=== PATIENT | female | born 1980 | race African-American/Black ===

== ENCOUNTER 2024-06-19 20:57 | Emergency (ER) | payer MEDICAID, SELFPAY ==
[2024-06-19 21:10] VITALS: BP 123/74; PULSE 82; RESP 18; TEMP 37.3; O2SAT 97; BMI 43.2
--- NOTE | 2024-06-19 23:33 | ED.GENADULT ---
HPI - General Adult General Chief complaint: Epistaxis Stated complaint: nose bleed Time Seen by Provider: 06/19/24 23:27 Source: patient, RN notes reviewed and old records reviewed Mode of arrival: ambulatory Limitations: no limitations History of Present Illness ED Provider: Brenda LEVINE narrative: 43-year-old female presents for evaluation of a nosebleed. Patient reports that she had a sudden notes have a nosebleed around 830 last night. She states that there was no trauma. The nosebleed with some of the right nostril only lasted 10-15 minute before resolving denies any bleeding from anywhere else including vaginal or rectal bleeding she was not on any anticoagulation denies any other complaints or concerns at this time Related Data Allergies Allergy/AdvReac Type Severity Reaction Status Date / Time No Known Allergies Allergy Verified 06/19/24 21:12 Review of Systems Constitutional: Constitutional: Denies body ache(s), Denies chills, Denies fever(s) and Denies headache(s) Eyes: Eyes: Denies exophthalmos and Denies floaters ENT: Denies headache(s) and Reports epistaxis Cardiovascular: Cardiovascular: Denies chest pain and Denies dyspnea Respiratory: Respiratory: Denies cough and Denies dyspnea Gastrointestinal: Gastrointestinal: Denies abdominal pain, Denies melena, Denies hematochezia and Denies vomiting Genitourinary: Genitourinary: Denies vaginal discharge Neurologic: Denies headache(s) PMFSH Social History Social History Advance Directives: No Advance Directives Information Provided: Yes Physical Exam ED Vital Signs: Vital Signs - 24 hr 06/19/24 21:10 Temperature 99.2 F Pulse Rate 82 Respiratory Rate 18 Blood Pressure 123/74 Pulse Oximetry 97 Oxygen Delivery Method Room Air BMI result Body Mass Index 43.2 Const General: healthy appearing, comfortable, no acute distress, alert and awake Nutritional Appearance: well nourished Orientation/consciousness: patient oriented x3 HENMT Other: minimal dried blood within the right nostril, no active epistaxis Head: Yes normocephalic and Yes atraumatic General nose exam: No nasal discharge present, no epistaxis, no foreign body in nares and no nasal polyps Face and sinus: Yes sinuses nontender Eyes Eyelids: Yes eyelids normal Conjunctivae: conjunctivae normal Sclerae: sclerae normal Corneas: corneas normal Pupils: Equal, round and reactive pupils present EOM: EOMs intact bilaterally Neck Neck: Yes full ROM Resp Effort & Inspection: normal respiratory effort, able to speak in complete sentences and not labored Skin General skin exam: elasticity normal Neuro General: patient oriented x3 Cranial nerves: Yes Equal, round and reactive pupils present and Yes Bilaterally intact EOM present Cognition (Neuro): normal cognition Extrem Other: Moving all extremities well without any obvious deformities Medical Decision Making Medical Decision Making MDM Narrative: 42-year-old female presents for evaluation of a nosebleed. Symptoms started at hour prior to arrival it lasted 10-15 minutes before resolving on its own. There was no active bleeding. The patient's vital signs are stable. She is not anticoagulated. She was educated on nosebleeds and treatment and he will be discharged. Differential Diagnosis Differential Diagnoses: The differential diagnosis associated with the presentation includes Epistaxis Nosebleed Allergies Coagulopathy Discharge Plan Discharge Clinical Impression: Epistaxis Patient Disposition: Home, Self-Care Instructions: Nosebleed (ED) Additional Instructions: if you are nosebleed returns, hold direct pressure over your nose for 10-15 minutes. You may also apply ice packs of the outside of the nose. If you continue to have nosebleeds, you may want to get a humidifier to put next to your bed at night follow-up with your primary doctor, return for new or worsening symptoms Print Language: Nigerian Creole
[2024-06-19 23:52] VITALS: BP 123/74; PULSE 82; RESP 18; TEMP 37.3; O2SAT 97
== END 2024-06-20 | disposition home or self-care (01) ==
PROVIDERS: Emergency Provider Internal Medicine
DX: R04.0 Epistaxis (principal)
CPT/HCPCS: 99282

== ENCOUNTER 2024-07-07 11:16 | Outpatient (REF) | payer MEDICAID, SELFPAY ==
--- NOTE | ~2024-07-07 | XR_ITS ---
EXAMINATION: XR HAND, LEFT CLINICAL INFORMATION: L hand and wrist pain, L trigger finger, hand numbness COMPARISON: None available. TECHNIQUE: PA, lateral, and oblique views of the left hand. FINDINGS: The bones and soft tissues are normal. No fracture. Alignment is anatomic. Joint spaces are maintained. No erosions or soft tissue calcifications. XR/XR hand LT min 3V IMPRESSION: Normal left hand. Electronically signed by: Leonard Florence MD 07/07/2024 12:26 PM EDT
--- NOTE | ~2024-07-07 | XR_ITS ---
EXAMINATION: XR WRIST, LEFT CLINICAL INFORMATION: L hand and wrist pain, L trigger finger, hand numbness COMPARISON: None available. TECHNIQUE: PA, lateral, oblique, and scaphoid views of the left wrist. FINDINGS: The bones and soft tissues are normal. No fracture. Alignment is anatomic with normal joint spaces. No erosions or abnormal soft tissue calcifications. XR/XR wrist LT min 3V IMPRESSION: Normal left wrist. Electronically signed by: Leonard Florence MD 07/07/2024 12:25 PM EDT
--- OUTSIDE RECORDS SUMMARY | 2024-07-07 12:45 | XMS_ITS | Encounter Summary ---
Author Organization [employer] Address [address] [facility] [address] [place] [address] Care Team Providers Care Tariff Inspector Name Role Phone Leora Peña DO Primary Care Provider [phone] Reason for Referral * Consultation (Urgent) - Authorized Specialty Diagnoses / Procedures Referred By Contac t Referred To Contact Family Medicine Diagnoses Skin lesion Leora Peña DO [address], [place] Phone: tel: fax: Referral ID Status Reason Start Date Expiration Date Visits Requested Visits Authorized [id number] Authorized Specialty Services Required 07/07/2024 07/07/2025 1 1 * Consultation (Routine) - Pending Review Specialty Diagnoses / Procedures Referred By Contac t Referred To Contact Orthopaedic Surgery Diagnoses Numbness of left hand Left wrist pain Trigger middle finger of left hand Leora Peña DO [address], [place] Phone: tel: fax: Referral ID Status Reason Start Date Expiration Date Visits Requested Visits Authorized [id number] Pending Review Specialty Services Required 07/07/2024 07/07/2025 1 1 * Neurology (Routine) - Authorized Specialty Diagnoses / Procedures Referred By Contac t Referred To Contact Diagnoses Numbness of left hand Left wrist pain Procedures Nerve conduction test Leora Peña DO [address] [place] [address] Phone: tel: fax: [address] Phone: tel: fax: Referral ID Status Reason Start Date Expiration Date V isits Requested Visits Authorized [id number] Authorized 07/07/2024 07/07/2025 1 1 * Neurology (Routine) - Authorized Specialty Diagnoses / Procedures Referred By Irais daly Referred To Contact Diagnoses Numbness of left hand Left wrist pain Procedures EMG Leora Peña DO [address] [place] [address] Phone: tel: fax: [address] Phone: tel: fax: Referral ID Status Reason Start Date Expiration Date V isits Requested Visits Authorized [id number] Authorized 07/07/2024 07/07/2025 1 1 Reason for Visit * Reason Comments hand numbness Encounter Details Date Type Department Care Team (Late st Contact Info) Description 07/07/2024 9:40 AM EDT Office Visit [facility] [address] [place] [id number] Numbness of left hand (Primary Dx); Left wrist pain; Trigger middle finger of left hand; Skin lesion; Anxiety Social History Tobacco Use Types Packs/Day Years Used Date Smoking Tobacco: Never Tobacco Cessation:Counseling Given: Not Answered Depression Answer Date Recorded Patient Health Questionnaire-9 Score 6 07/07/2024 Patient Health Questionnaire-9 Score 6 07/07/2024 Last PHQ-9: Questionnaire Data Not on file 0 07/07/2024 Depression Answer Date Recorded Patient Health Questionnaire-2 Score 1 07/07/2024 Comments Unknown Sex and Gender Information Value Date Recorded Sex Assigned at Female 08/04/2023 9:58 AM EDT Legal Sex Female 9:52 AM EDT Gender Identity Female 08/04/2023 9:58 AM EDT Sexual Orientation Straight 08/04/2023 9: 58 AM EDT documented as of this encounter Last Filed Vital Signs Vital Sign Reading Time Taken Comments Blood Pressure 124/82 07/07/2024 10:35 AM EDT Pulse 100 07/07/2024 9:45 AM EDT Temperature 36.3 ??C (97.4 ??F) 07/07/2024 9:45 AM ED T Respiratory Rate 17 07/07/2024 9:45 AM EDT Oxygen Saturation 98% 07/07/2024 9:45 AM EDT Inhaled Oxygen Concentration - - Weight 101 kg (223 lb 3.2 oz) 07/07/2024 9:45 AM EDT Height - - Body Mass Index - - documented in this encounter Plan of Treatment Scheduled Orders Name Type Priority Associated Diagnoses Orde r Schedule EMG Neurology Routine Numbness of left hand Left wrist pain Expected: 07/07/2024 (Approximate), Expires: 07/07/2025 Nerve conduction test Neurology Routine Numbness of left hand Left wrist pain Expected: 07/07/2024 (Approximate), Expires: 07/07/2025 T4, Free Lab Routine Numbness of left hand Left wrist pain Trigger middle finger of left hand Skin lesion Anxiety Expected: 07/07/2024 (Approximate), Expires: 07/07/2025 Lipid Panel, Standard Lab Routine Numbness of left hand Left wrist pain Trigger middle finger of left hand Skin lesion Anxiety Expected: 07/07/2024 (Approximate), Expires: 07/07/2025 TSH Lab Routine Numbness of left hand Left wrist pain Trigger middle finger of left hand Skin lesion Anxiety Expected: 07/07/2024 (Approximate), Expires: 07/07/2025 Vitamin D, 25-Hydroxy, Total, Immunoassay Lab Routine Numbness of left hand Left wrist pain Trigger middle finger of left hand Skin lesion Anxiety Expected: 07/07/2024 (Approximate), Expires: 07/07/2025 Hepatic Function Panel Lab Routine Numbness of left hand Left wrist pain Trigger middle finger of left hand Skin lesion Anxiety Expected: 07/07/2024 (Approximate), Expires: 07/07/2025 Hemoglobin A1c Lab Routine Numbness of left hand Left wrist pain Trigger middle finger of left hand Skin lesion Anxiety Expected: 07/07/2024 (Approximate), Expires: 07/07/2025 CBC Lab Routine Numbness of left hand Left wrist pain Trigger middle finger of left hand Skin lesion Anxiety Expected: 07/07/2024, Expires: 07/07/2025 Basic Metabolic Panel Lab Routine Numbness of left hand Left wrist pain Trigger middle finger of left hand Skin lesion Anxiety Expected: 07/07/2024 (Approximate), Expires: 07/07/2025 Hepatitis B surface antigen, EIA Lab Routine Numbness of left hand Left wrist pain Trigger middle finger of left hand Skin lesion Anxiety Expected: 07/07/2024 (Approximate), Expires: 07/07/2025 Chlamydia/N. Gonorrhoeae RNA, TMA, Urogenitial Microbiology Routine Numbness of left hand Left wrist pain Trigger middle finger of left hand Skin lesion Anxiety Ordered: 07/07/2024 HIV-1/2 Antigen and Antibodies, Fourth Generation, with Reflexes Lab Routine Numbness of left hand Left wrist pain Trigger middle finger of left hand Skin lesion Anxiety Expected: 07/07/2024 (Approximate), Expires: 07/07/2025 Hepatitis C Antibody with Reflex to HCV, RNA, Quantitative, Real-Time PCR Lab Routine Numbness of left hand Left wrist pain Trigger middle finger of left hand Skin lesion Anxiety Expected: 07/07/2024, Expires: 07/07/2025 RPR (Monitor) with Reflex to??Titer Lab Routine Numbness of left hand Left wrist pain Trigger middle finger of left hand Skin lesion Anxiety Expected: 07/07/2024, Expires: 07/07/2025 Hepatitis B Surface Antibody, Qualitative Lab Routine Numbness of left hand Left wrist pain Trigger middle finger of left hand Skin lesion Anxiety Expected: 07/07/2024 (Approximate), Expires: 07/07/2025 Hepatitis A Antibody, Total Lab Routine Numbness of left hand Left wrist pain Trigger middle finger of left hand Skin lesion Anxiety Expected: 07/07/2024 (Approximate), Expires: 07/07/2025 Hepatitis B Core Antibody, Total Lab Routine Numbness of left hand Left wrist pain Trigger middle finger of left hand Skin lesion Anxiety Expected: 07/07/2024 (Approximate), Expires: 07/07/2025 T-SPOT??.TB Lab Routine Numbness of left hand Left wrist pain Trigger middle finger of left hand Skin lesion Anxiety Expected: 07/07/2024 (Approximate), Expires: 07/07/2025 Scheduled Referrals Name Type Priority Associated Diagnoses Order Schedule Referral to Orthopaedic Surgery Outpatient Referral Routine Numbness of left hand Left wrist pain Trigger middle finger of left hand Expected: 07/07/2024 (Approximate), Expires: 07/07/2025 Referral to [facility] Skin Adult Outpatient Referral Urgent Skin lesion Expected: 07/07/2024 (Approximate), Expires: 07/07/2025 documented as of this encounter Procedures Procedure Name Priority Date/Time Associated Diagnosis Comments XR HAND 3+ VIEWS LEFT Urgent 07/07/2024 11:16 AM EDT Numbness of left hand Left wrist pain Trigger middle finger of left hand XR WRIST 3+ VIEWS LEFT Urgent 07/07/2024 11:16 AM EDT Numbness of left hand Left wrist pain Trigger middle finger of left hand documented in this encounter Results * XR Wrist 3+ Views Left (07/07/2024 11:16 AM EDT) Anatomical Region Laterality Modality Upper Extremities, Wrist Left Radiogr aphic Imaging 07/07/2024 11:1 6 AM EDT Narrative 07/07/2024 12:28 PM EDT ?[facility] ?[address] ?[place] [address] ?XRay Report ? Signed ? Patient: Delfin Underwood ?MR#: [id number] ?? [id number] ? : 1980 ?Acct:[id number] ? Age/Sex: 43 / F ?ADM Date: 05/08/25 ? Loc: HO.HHCX ? Attending : Leora Peña DO ? Ordering Physician: Leora Peña DO ?? Date of Service: 07/07/24 ?? Procedure(s): XR wrist LT min 3V ?? Accession Number(s): [id number] ? cc: Martha Peñafer Huong DO ? EXAMINATION: ?? XR WRIST, LEFT ? CLINICAL INFORMATION: ?? L hand and wrist pain, L trigger finger, hand numbness ? COMPARISON: ?? None available. ? TECHNIQUE: ?? PA, lateral, oblique, and scaphoid views of the left wrist. ? FINDINGS: ?? The bones and soft tissues are normal. No fracture. Alignment is ?? anatomic with normal joint spaces. No erosions or abnormal soft tissue ?? calcifications. ? XR/XR wrist LT min 3V ?? IMPRESSION: ?? Normal left wrist. ? Electronically signed by: ??Leonard Florence MD ??07/07/2024 12:25 PM EDT RP ? Dictated By: ?Leonard Florence MD ? Signed By: ?<Electronically signed by Leonard Florence MD in OV> ?07/07/24 1225 ? DD/ 1116 ? TD/TT: 07/07/24 1120 ? Career Coordinator: ? Procedure Note Donluci, Image - 07/07/[address] [address] XRay Report Signed Patient: Delfin UnderwoodMR#: [id number] : 1980Acct:[id number] Age/Sex: 43 / FADM Date: 07/07/24 Loc: HO.HHCX Attending Dr: Leora Peña DO Ordering Physician: Leora Peña DO Date of Service: 07/07/24 Procedure(s): XR wrist LT min 3V Accession Number(s): [id number] cc: Leora Peña DO EXAMINATION: XR WRIST, LEFT CLINICAL INFORMATION: L hand and wrist pain, L trigger finger, hand numbness COMPARISON: None available. TECHNIQUE: PA, lateral, oblique, and scaphoid views of the left wrist. FINDINGS: The bones and soft tissues are normal. No fracture. Alignment is anatomic with normal joint spaces. No erosions or abnormal soft tissue calcifications. XR/XR wrist LT min 3V IMPRESSION: Normal left wrist. Electronically signed by: Leonard Florence MD 07/07/2024 12:25 PM EDT Dictated By: Leonard Florence MD Signed By: <Electronically signed by Leonard Florence MD in OV> 07/07/24 1225 DD/ 1116 TD/TT: 07/07/24 1120 Career Coordinator: us Leora Peña DO IMG XR PROCEDURES Edited Res ult - Final * XR Hand 3+ Views Left (07/07/2024 11:16 AM EDT) Anatomical Region Laterality Modality Upper Extremities, Hand Left Radiogra phic Imaging 07/07/2024 11:1 6 AM EDT Narrative 07/07/2024 12:28 PM EDT ?[facility] ?[address] ?[place] [address] ?XRay Report ? Signed ? Patient: Delfin Underwood ?MR#: [id number] ?? [id number] ? : 1980 ?Acct:[id number] ? Age/Sex: 43 / F ?ADM Date: 07/07/24 ? Loc: HO.HHCX ? Attending Dr: Leora Peña DO ? Ordering Physician: Leora Peña DO ?? Date of Service: 07/07/24 ?? Procedure(s): XR hand LT min 3V ?? Accession Number(s): [id number] ? cc: Leora Peña DO ? EXAMINATION: ?? XR HAND, LEFT ? CLINICAL INFORMATION: ?? L hand and wrist pain, L trigger finger, hand numbness ? COMPARISON: ?? None available. ? TECHNIQUE: ?? PA, lateral, and oblique views of the left hand. ? FINDINGS: ?? The bones and soft tissues are normal. No fracture. Alignment is ?? anatomic. Joint spaces are maintained. No erosions or soft tissue ?? calcifications. ? XR/XR hand LT min 3V ?? IMPRESSION: ?? Normal left hand. ? Electronically signed by: ??Leonard Florence MD ??07/07/2024 12:26 PM EDT RP ? Dictated By: ?Leonard Florence MD ? Signed By: ?<Electronically signed by Leonard Florence MD in OV> ?07/07/24 1226 ? DD/ 1116 ? TD/TT: 07/07/24 1120 ? Career Coordinator: ? Procedure Note Donluci, Ingrid - 07/07/2024 [facility] [address] [place] [address] XRay Report Signed Patient: Delfin UnderwoodMR#: [id number] : 1980Acct:[id number] Age/Sex: 43 / FADM Date: 07/07/24 Loc: HO.HHCX Attending Dr: Leora Peña DO Ordering Physician: Leora Peña DO Date of Service: 07/07/24 Procedure(s): XR hand LT min 3V Accession Number(s): [id number] cc: Leora Peña DO EXAMINATION: XR HAND, LEFT CLINICAL INFORMATION: L hand and wrist pain, L trigger finger, hand numbness COMPARISON: None available. TECHNIQUE: PA, lateral, and oblique views of the left hand. FINDINGS: The bones and soft tissues are normal. No fracture. Alignment is anatomic. Joint spaces are maintained. No erosions or soft tissue calcifications. XR/XR hand LT min 3V IMPRESSION: Normal left hand. Electronically signed by: Leonard Florence MD 07/07/2024 12:26 PM EDT Dictated By: Leonard Florence MD Signed By: <Electronically signed by Leonard Florence MD in OV> 07/07/24 1226 DD/ 1116 TD/TT: 07/07/24 1120 Career Coordinator: Leora Peña DO IMG XR PROCEDURES Edited Res ult - Final documented in this encounter Visit Diagnoses Diagnosis Numbness of left hand- Primary Left wrist pain Pain in joint, forearm Trigger middle finger of left hand Skin lesion Unspecified disorder of skin and subcutaneous tissue Anxiety Anxiety state, unspecified documented in this encounter Additional Health Concerns Assessment Noted Time PHQ-9 Depression Total Score: 6 07/08/19 25 11:49 AM EDT documented as of this encounter Care Teams Tariff Inspector Relationship Specialty Start Date End Date Leora Peña DO [address] [place] [address] PCP - General Family Medicine 07/07/24 documented as of this encounter
--- OUTSIDE RECORDS SUMMARY | 2024-07-07 12:46 | XMS_ITS | Clinical Summary ---
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 naproxen (Naprosyn) 500 MG tablet Take 1 tablet (500 mg) by mouth if needed in the morning and at bedtime for mild pain. 40 tablet 1 07/08/19 25 026 Active gabapentin (Neurontin) 300 MG capsule Take 1 capsule (300 mg) by mouth at bedtime. 30 capsule 3 07/08/19 25 026 Active Diclofenac Sodium 1 % gel Apply 2 g topically if needed in the morning, at noon, in the evening, and at bedtime (pain). 150 g 3 07/08/19 25 Active acetaminophen (Tylenol 8 Hour) 650 MG ER tablet Take 1 tablet (650 mg) by mouth every 8 (eight) hours if needed for mild pain. Do not crush, chew, or split. 40 tablet 1 07/08/19 25 Active acetaminophen (Tylenol 8 Hour) 650 MG ER tablet Take 650 mg by mouth every 8 (eight) hours if needed for mild pain. Do not crush, chew, or split. 025 Discontinued(Re order (will not trigger notification to Pharmacy)) Active Problems Problem Noted Date Diagnosed Date Anxiety 07/07/2024 Mild depression 07/07/2024 Resolved Problems Problem Noted Date Diagnosed Date Resolved Date History of COVID-19 07/07/2024 07/08/19 25 Encounters * This document contains information received from the source organization and may not represent a complete record from that organization. Date Type Department Care Team Description 07/07/2024 9:40 AM EDT Office Visit [facility] [address] [place] [address] Numbness of left hand (Primary Dx); Left wrist pain; Trigger middle finger of left hand; Skin lesion; Anxiety 05/13/2024 Population Health Risk Score [facility] ([facility] Department [address] [place] [phone] Provider, Population Health Generic 04/12/2024 10:10 AM EST Immunization [facility] [address] [place] [address] Paige Sloan LPN Encounter for immunization (Primary Dx) 04/12/2024 Travel from Last 3 Months Immunizations Name Administration Dates Next Due Moderna Covid-19 Vaccine 12+ 02/28/2021,01/12/20 21 Pfizer Covid-19 Vaccine 12+ 04/12/2024 Social History Tobacco Use Types Packs/Day Years [...] Orientation Straight 08/04/2023 9: 58 AM EDT Last Filed Vital Signs Vital Sign Reading [...] - - Body Mass Index - - Plan of Treatment Health Maintenance Due Date Last Done Comments Dental Oral Exam 1980 Dental Prophylaxis 1980 Dental X-Ray: Bitewings 1980 Dental X-Ray: Full Mouth 1980 HIV Screening 1980 SDOH Screening 1980 Alcohol/Substance Use Screening 1992 Tobacco Screening 1992 Family Planning (PISQ) 12/14/1995 Hepatitis C Screening 1998 DTaP/Tdap/Td Vaccines (1 - Tdap) 12/14/1999 Hepatitis B Vaccines (1 of 3 - 19+ 3-dose series) 12/14/1999 Pap Smear 2001 Cervical Cancer Screening 2010 HPV/Cotest 2010 Mammogram 2020 Influenza Vaccine (#1) 2023 Depression Screening 07/07/2025 07/07/2024, 07/07/2024 Zoster Vaccines (1 of 2) 2030 RSV Patients and Patients Aged 60 years or older (1 - 1-dose 75+ series) 12/14/2055 COVID-19 Vaccine Completed 04/12/2024, 02/28/2021, 01/11/2021 HIB Vaccines Aged Out No longer eligi ble based on patient's age to complete this topic HPV Vaccines Aged Out No longer eligi ble based on patient's age to complete this topic Hepatitis A Vaccines Aged Out No long er eligible based on patient's age to complete this topic IPV Vaccines Aged Out No longer eligi ble based on patient's age to complete this topic Meningococcal Vaccine Aged Out No pardeep jenni eligible based on patient's age to complete this topic Pneumococcal Vaccine: Pediatrics (0 to 5 Years) and At-Risk Patients (6 to 49) Years) Aged Out No longer eligible b ased on patient's age to complete this topic RSV under 20 months Aged Out No longe r eligible based on patient's age to complete this topic Rotavirus Vaccines Aged Out No longer eligible based on patient's age to complete this topic Procedures Procedure Name Priority Date/Time Associated Diagnosis Comments XR WRIST 3+ VIEWS LEFT Urgent 07/07/2024 11:16 AM EDT Numbness of left hand Left wrist pain Trigger middle finger of left hand XR HAND 3+ VIEWS LEFT Urgent 07/07/2024 11:16 AM EDT Numbness of left hand Left wrist pain Trigger middle finger of left hand from Last 3 Months Results * XR Hand 3+ Views Left (07/07/2024 11:16 AM EDT) Anatomical Region Laterality Modality Upper Extremities, Hand Left Radiogra phic Imaging 07/07/2024 11:1 6 AM EDT Narrative 07/07/2024 12:28 PM EDT ?[facility] ?[address] ?[place] [address] ?XRay Report ? Signed ? Patient: Delfin Underwood ?MR#: [id number] ?? [id number] ? : 1980 ?Acct:[id number] ? Age/Sex: 43 / F ?ADM Date: 07/07/24 ? Loc: HO.HHCX ? Attending Dr: Leora Peña DO ? Ordering Physician: Leora Peña DO ?? Date of Service: 07/07/24 ?? Procedure(s): XR hand LT min 3V ?? Accession Number(s): [id number] ? cc: Leora Peña DO ? EXAMINATION: [...] DD/ 1116 ? TD/TT: 07/07/24 1120 ? Hair Spring Cutter: ? Procedure Note Donluci, Ingrid - 07/07/2024 [facility] [address] [place] [address] XRay Report Signed Patient: Delfin UnderwoodMR#: [id number] : 1980Acct:[id number] Age/Sex: 43 / FADM Date: 07/07/24 Loc: HO.HHCX Attending Dr: Leora Peña DO Ordering Physician: Leora Peña DO Date of Service: 07/07/24 Procedure(s): XR hand LT min 3V Accession Number(s): [id number] cc: Leora Peña DO EXAMINATION: XR HAND, [...] 07/07/24 1226 DD/ 1116 TD/TT: 07/07/24 1120 Hair Spring Cutter: Leora Peña DO IMG XR PROCEDURES Edited Res ult - Final * XR Wrist 3+ Views Left (07/07/2024 11:16 AM EDT) Anatomical Region Laterality Modality Upper Extremities, Wrist Left Radiogr aphic Imaging 07/07/2024 11:1 6 AM EDT Narrative 07/07/2024 12:28 PM EDT ?[place] [facility] ?[address] ?[place] [address] ?XRay Report ? Signed ? Patient: Kj,Charlakinga ?MR#: [id number] ?? [id number] ? : 1980 ?Acct:[id number] ? Age/Sex: 43 / F ?ADM Date: 07/07/24 ? Loc: HO.HHCX ? Attending Dr: Leora Peña DO ? Ordering Physician: Leora Peña DO ?? Date of Service: 07/07/24 ?? Procedure(s): XR wrist LT min 3V ?? Accession Number(s): [id number] ? cc: Leora Peña DO ? EXAMINATION: ?? XR WRIST, LEFT [...] DD/ 1116 ? TD/TT: 07/07/24 1120 ? Hair Spring Cutter: ? Procedure Note Ingrid Omer - 07/07/2024 [facility] [address] [place] [address] XRay Report Signed Patient: Delfin Underwood#: [id number] : 1980Acct:[id number] Age/Sex: 43 / FADM Date: 07/07/24 Loc: HO.HHCX Attending Dr: Leora Peña DO Ordering Physician: Leora Peña DO Date of Service: 07/07/24 Procedure(s): XR wrist LT min 3V Accession Number(s): [id number] cc: Leora Peña DO EXAMINATION: XR WRIST, [...] Leonard Florence MD 07/07/2024 12:25 PM EDT RP Dictated By: Leonard Florence MD Signed By: <Electronically signed by Leonard Florence MD in OV> 07/07/24 1225 DD/ 1116 TD/TT: 07/07/24 1120 Hair Spring Cutter: Leora Peña DO IMG XR PROCEDURES Edited Res ult - Final from Last 3 Months Insurance [facility] C[facility] MEDICAID STAND ADULT Care Teams [employer] Worker Relationship Specialty Start Date End Date Leora Peña DO [address] [place] [address] PCP - General Family Medicine 07/07/24
[2024-07-07 13:24] LABS: Hematocrit 39.1 % (37.0-47.0); Hemoglobin 12.9 g/dl (12.0-16.0); Mean Corpuscular Hemoglobin 25.5 pg (27.0-33.0); Mean Corpuscular Volume 77.4 fL (80.0-98.0); Mean Platelet Volume 10.1 fL (9.4-12.3); Platelet Count 310 X10*3/uL (160-400); Red Blood Count 5.05 X10*6/uL (4.20-5.50); Red Cell Distribution Width 13.6 % (11.0-16.0); White Blood Count 6.3 X10*3/uL (4.8-10.8)
[2024-07-07 13:31] LABS: Estimated Average Glucose 123 mg/dL; Hemoglobin A1C 139.3918 umol/L; Hemoglobin A1c % 5.9 % (<6.0); Total Hemoglobin (HGBA1C) 3404.0867 umol/L
[2024-07-07 13:44] LABS: Alanine Aminotransferase 15 U/L (0-31); Albumin Level 4.1 g/dL (3.5-5.0); Alkaline Phosphatase 72 U/L (39-117); Anion Gap 12 (12-20); Aspartate Amino Transferase 19 U/L (5-31); Bilirubin Direct 0.2 mg/dL (0.0-0.5); Bilirubin Total 0.6 mg/dL (0.0-1.0); Blood Urea Nitrogen 12 mg/dL (9-16); Calcium 9.5 mg/dL (8.4-10.2); Carbon Dioxide 27 mmol/L (22-29); Chloride 105 mmol/L (96-108); Cholesterol 170 mg/dL (<200); Estimated Glomerular Filt Rate > 60; Glucose Random 101 mg/dL (60-115); HDL Cholesterol 47 mg/dL (>40); LDL Cholesterol Calculated 95 mg/dL (<100); Potassium 3.7 mmol/L (3.3-5.1); Sodium 140 mmol/L (135-145); Total Protein 7.4 g/dL (6.5-8.0); Triglycerides 140 mg/dL (<150)
[2024-07-07 13:51] LABS: Hepatitis A Antibody IgG REACTIVE (Nonreactive)
[2024-07-07 13:52] LABS: HBS Num1 1.41 mIU/mL (0-7.99); HBc Num1 0.12 S/CO (0.00-0.79); HBsAGNum1 0.28 S/CO (0.00-0.99); HIV AB/AG Nonreactive (Nonreactive); HIV Num 1 0.07 S/CO (0.00-0.99); Hepatitis B Core Antibody Nonreactive (Nonreactive); Hepatitis B Surface Antigen Negative (Negative); ~HepC Num1 0.09 S/CO (0.00-0.79); ~Hepatitis B Surface Antibody NONREACTIVE (Nonreactive); ~Hepatitis C Antibody Nonreactive (Nonreactive)
[2024-07-07 14:02] LABS: Thyroid Stimulating Hormone 1.23 uIU/mL (0.32-4.0); Vitamin D 25-OH Total 22.4 ng/mL (>30)
[2024-07-07 18:48] LABS: CT PCR NOT DETECTED (Not Detect.); NG PCR NOT DETECTED (Not Detect.)
== END 2024-07-07 11:17 | disposition home or self-care (01) ==
LOC: HO.HHCX 11:16
PROVIDERS: Visit Provider Family Medicine
DX: R20.0 Anesthesia of skin (principal); M25.532 Pain in left wrist; M65.30 Trigger finger, unspecified finger; M65.332 Trigger finger, left middle finger; L98.9 Disorder of the skin and subcutaneous tissue, unspecified; F41.9 Anxiety disorder, unspecified
CPT/HCPCS: 73110; 73130; 80048; 80061; 80076; 82306; 83036; 84439; 84443; 85027; 86481; 86592; 86704; 86706; 86708; 86803; 87340; 87389; 87491; 87591

== ENCOUNTER → 2024-07-07 11:16 | Outpatient (BNV) | payer MEDICAID, SELFPAY | PROVIDERS: Visit Provider Radiology Diagnostic Radiology | DX: M79.642 Pain in left hand (principal); R20.2 Paresthesia of skin; M25.532 Pain in left wrist; M65.30 Trigger finger, unspecified finger | CPT/HCPCS: 73110; 73130 ==

== ENCOUNTER 2024-07-07 11:27 | Outpatient (REF) | payer MEDICAID, SELFPAY | END 2024-07-07 11:28 | disposition home or self-care (01) | LOC: HO.HHCL 11:27 | PROVIDERS: Visit Provider Family Medicine | DX: Z13.89 Encounter for screening for other disorder (principal) ==

== ENCOUNTER 2024-07-19 09:12 | Outpatient (REF) | payer MEDICAID, SELFPAY ==
--- NOTE | 2024-07-19 | EMG_ITS ---
Left median and ulnar motor and sensory studies were performed. Left radial and median and lateral antecubital brachial sensory studies were performed and paraspinal muscles were tested with a needle. IMPRESSION: Mild to moderate left median neuropathy across carpal tunnel. MD CORY Mcgarry/ARNALDO / [id number]
--- OUTSIDE RECORDS SUMMARY | 2024-07-19 09:53 | XMS_ITS | Clinical Summary ---
Author Organization [facility] Address [address] [place] [address] Care Team Providers Care Board Finisher Name Role Phone Mariana Leora DILLON Primary Care Provider + [phone] Allergies No known active allergies Medications * [...] split. 40 tablet 1 07/08/19 25 Active cholecalcifero l (Vitamin D-3) 50 MCG (2000 UT) capsule Take 1 capsule (50 mcg) by mouth Once per day. 90 capsule 3 07/09/19 25 026 Active acetaminophen (Tylenol 8 Hour) 650 MG [...] organization. 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) 07/08/2024 Refill [facility] [place] [address] Leora Peña DO 07/07/2024 9:40 AM EDT Office Visit [facility] [place] [address] Leora Peña DO Numbness of left hand (Primary Dx); Left wrist pain; Trigger middle finger of left hand; Skin lesion; Anxiety 05/13/2024 Population Health Risk Score [facility] () Department [address] [phone] Provider, Population Health Generic from Last 3 Months Immunizations Immunization Administration Dates Next Due Moderna Covid-19 Vaccine 12+ 02/28/2021,01/12/20 21 Pfizer Covid-19 Vaccine 12+ 04/12/2024 Family History Medical History Relation Name Comments Tuberculosis Father Relation Name Status Comments Father Social History Tobacco Use Types Packs/Day Years [...] Bitewings 1980 Dental X-Ray: Full Mouth 1980 SDOH Screening 1980 Disability Screening 1980 Alcohol/Substance Use Screening 1992 Family Planning (PISQ) 12/14/1995 DTaP/Tdap/Td Vaccines (1 - Tdap) 12/14/1999 Hepatitis B Vaccines (1 of 3 - 19+ 3-dose series) 12/14/1999 Pap Smear 2001 Cervical Cancer Screening 2010 HPV/Cotest 2010 Mammogram 2020 Influenza Vaccine (#1) 2023 Depression Screening 07/07/2025 07/07/2024, 07/07/2024 Diabetes: Hemoglobin A1C 07/07/2025 07/07/2024 Tobacco Screening 07/07/2025 07/07/2024 Zoster Vaccines (1 of 2) 2030 RSV Patients and Patients Aged 60 years or older (1 - 1-dose 75+ series) 12/14/2055 COVID-19 Vaccine Completed 04/12/2024, 02/28/2021, 01/11/2021 HIV Screening Completed 07/07/2024 Hepatitis C Screening Completed 07/07/2024 HIB Vaccines Aged Out No longer eligi [...] patient's age to complete this topic Meningococcal B Vaccine Aged Out No l onger eligible based on patient's age to complete [...] Procedure Name Priority Date/Time Associated Diagnosis Comments T-SPOT(R).TB Routine 07/07/2024 11:30 AM EDT Numbness of left hand Left wrist pain Trigger middle finger of left hand Skin lesion Anxiety HEPATITIS B CORE AB TOTAL Routine 07/07/2024 11:30 AM EDT Numbness of left hand Left wrist pain Trigger middle finger of left hand Skin lesion Anxiety HEPATITIS A ANTIBODY, TOTAL Routine 07/07/2024 11:30 AM EDT Numbness of left hand Left wrist pain Trigger middle finger of left hand Skin lesion Anxiety HEPATITIS B SURFACE ANTIBODY, QUALITATIVE Routine 07/07/2024 11:30 AM EDT Numbness of left hand Left wrist pain Trigger middle finger of left hand Skin lesion Anxiety RPR (MONITOR) W/REFL TITER Routine 07/07/2024 11:30 AM EDT Numbness of left hand Left wrist pain Trigger middle finger of left hand Skin lesion Anxiety HEPATITIS C AB W/REFL TO HCV RNA, QN, PCR Routine 07/07/2024 11:30 AM EDT Numbness of left hand Left wrist pain Trigger middle finger of left hand Skin lesion Anxiety HIV 1/2 ANTIGEN/ANTIBODY, FOURTH GENERATION W/RFL Routine 07/07/2024 11:30 AM EDT Numbness of left hand Left wrist pain Trigger middle finger of left hand Skin lesion Anxiety HEPATITIS B SURFACE ANTIGEN, EIA Routine 07/07/2024 11:30 AM EDT Numbness of left hand Left wrist pain Trigger middle finger of left hand Skin lesion Anxiety BASIC METABOLIC PANEL Routine 07/07/2024 11:30 AM EDT Numbness of left hand Left wrist pain Trigger middle finger of left hand Skin lesion Anxiety CBC Routine 07/07/2024 11:30 AM EDT Numbness of left hand Left wrist pain Trigger middle finger of left hand Skin lesion Anxiety HEMOGLOBIN A1C Routine 07/07/2024 11:30 AM EDT Numbness of left hand Left wrist pain Trigger middle finger of left hand Skin lesion Anxiety HEPATIC FUNCTION PANEL Routine 07/07/2024 11:30 AM EDT Numbness of left hand Left wrist pain Trigger middle finger of left hand Skin lesion Anxiety VITAMIN D,25-OH,TOTAL,IA Routine 07/07/2024 11:30 AM EDT Numbness of left hand Left wrist pain Trigger middle finger of left hand Skin lesion Anxiety TSH Routine 07/07/2024 11:30 AM EDT Numbness of left hand Left wrist pain Trigger middle finger of left hand Skin lesion Anxiety LIPID PANEL, STANDARD Routine 07/07/2024 11:30 AM EDT Numbness of left hand Left wrist pain Trigger middle finger of left hand Skin lesion Anxiety T4, FREE Routine 07/07/2024 11:30 AM EDT Numbness of left hand Left wrist pain Trigger middle finger of left hand Skin lesion Anxiety CHLAMYDIA/N. GONORRHOEAE RNA, TMA, UROGENITAL Routine 07/07/2024 11:30 AM EDT Numbness of left hand Left wrist pain Trigger middle finger of left hand Skin lesion Anxiety XR WRIST 3+ VIEWS LEFT Urgent 07/07/2024 11:16 AM EDT Numbness of left hand Left wrist pain Trigger middle finger of left hand XR HAND 3+ VIEWS LEFT Urgent 07/07/2024 11:16 AM EDT Numbness of left hand Left wrist pain Trigger middle finger of left hand from Last 3 Months Results * (ABNORMAL) Vitamin D, 25-Hydroxy, Total, Immunoassay (07/07/2024 11:30 AM EDT) [facility] Vitamin D 25-OH Total 22.4(L) >30 ng/mL [facility] Comment: Health Based Reference Values*< 20 ??ng/mL ??Rlbvlyryj30-50 ng/mL ??Insufficient> 30 ??ng/mL ??Sufficient*Haris GUTIÉRREZ. N Engl J Med. 2007;357:266-280There is no well-established upper level of normal vitamin Dlevels. Some laboratories use 50 ng/mL as an upper limit ofnormal. However, toxicity is patient-dependent and may occurat any level. Careful correlation with the patient'spresentation is necessary and, if there is concern forvitamin D toxicity, treatment should be consideredirrespective of the serum level.Care must be taken in interpreting Vitamin D results fromdifferent laboratories and methodologies. ??Published datademonstrated that results from patients undergoinghemodialysis may show a negative bias when tested withvarious automated 25-OH vitamin D assays when compared toLC- MS/MS.When testing samples from patients whose predominant form ofVitamin D is Vitamin D2, such as patients receiving VitaminD2 supplementation, results that are subtherapeutic shouldbe confirmed with another method such as LC-MS/MS. Blood Venous blood specimen / Unknown 07/07/2024 11:30 AM EDT 07/07/2024 12:58 PM EDT us Leora Peña DO LAB BLOOD ORDERABLES Final R esult [facility] [address] [place] [phone] * (ABNORMAL) T-SPOT??.TB (07/07/2024 11:30 AM EDT) T Spot TB Positive( A) Negative [facility] Comment: Diagnosing or excluding tuberculosis (TB) disease andassessing the probability of latent TB infection (LTBI)requires a combination of epidemiological, historical,medical and diagnostic findings that should be takeninto consideration when interpreting T-SPOT.TB testresults. A positive test result does not rule in activeTB disease caused by Mycobacterium tuberculosis(M. tuberculosis); active TB disease should beconfirmed by other tests such as sputum smear andculture, PCR, and chest radiography.Uncommonly, a positive T-SPOT.TB result may be due toinfection with other Mycobacterium species includingM. kansasii, M. szulgai, M. gordonae, or M. marinum.Alternative tests would be required if these infectionsare suspected.The T-SPOT.TB test is qualitative and results arereported as positive, borderline, or negative, giventhat the test controls perform as expected. In linewith the Centers for Disease Control and Prevention's2010 recommendation to report quantitative measurementsalongside the qualitative result, the laboratoryprovides spot counts for informational purposes only.The T-SPOT.TB test should not be interpreted as aquantitative test. TS PANEL A 26 [facility] TS PANEL B 12 [facility] Negative Control Passed [facility] Positive Control Passed [facility] Comment:For additional infor shanell, please refer tohttp://education.Corhythm/faq/KAC662(This link is being provided for informational/educational purposes only.)THIS TEST WAS PERFORMED AT:[employer] [id number] [place] [id number] VILLAFANA MD,PHD 07/07/2024 11:3 0 AM EDT 07/07/2024 12:58 PM EDT Leora Peña DO LAB BLOOD ORDERABLES Final R esult Performing Organization Address City/State/[facility] Co de Phone Number [facility] [address] [place] [phone] * Hepatitis C Antibody with Reflex to HCV, RNA, Quantitative, Real-Time PCR (07/07/2024 11:30 AM EDT) [facility] Hepatitis C Antibody Nonreactive Nonreactive [facility] Comment:Antibodies to HCV no t detected; does not exclude early acuteHCV infection. Blood Venous blood specimen / Unknown 07/07/2024 11:30 AM EDT 07/07/2024 12:58 PM EDT Leora Peña LAB BLOOD ORDERABLES Final R [facility] Performing Organization Address [facility] Co de Phone Number [facility] [address] [place] [phone] * Hepatitis A Antibody, Total (07/07/2024 11:30 AM EDT) [facility] Hepatitis A Antibody IgG REACTIVE Nonreactive [facility] Comment:The presence of IgG anti-HAV implies past HAV infection(recent or distant) or vaccination against HAV. Blood Venous blood specimen / Unknown 07/07/2024 11:30 AM EDT 07/07/2024 12:58 PM EDT Leora Peña DO LAB BLOOD ORDERABLES Final R [facility] Performing Organization Address [facility] Co de Phone Number [facility] [address] [place] [phone] * Chlamydia/N. Gonorrhoeae RNA, TMA, Urogenitial (07/07/2024 11:30 AM EDT) [facility] CT PCR NOT DETECTED Not Detect. [facility] Comment:A not detected test result does not exclude the possibilityof infection because test results can be affected byimproper specimen collection, concurrent antibiotic therapy,or the number of organisms in the specimen which may bebelow the sensitivity of the test. As with many diagnostictests, results from the Xpert CT/NG assay should beinterpreted in conjunction with other laboratory andclinical data available to the clinician.Xpert CT/NG performance has not been evaluated in patientsless than 14 years of age. The assay should not be used forthe evaluationof suspected sexual abuse or for other medico-legalindications. Additional testing is recommended in anycircumstance when false positive or false negative resultscould lead to adverse medical, social or psychologicalconsequences. NG PCR NOT DETECTED Not Detect. [facility] Comment:A not detected test result does not exclude the possibilityof infection because test results can be affected byimproper specimen collection, concurrent antibiotic therapy,or the number of organisms in the specimen which may bebelow the sensitivity of the test. As with many diagnostictests, results from the Xpert CT/NG assay should beinterpreted in conjunction with other laboratory andclinical data available to the clinician.Xpert CT/NG performance has not been evaluated in patientsless than 14 years of age. The assay should not be used forthe evaluationof suspected sexual abuse or for other medico-legalindications. Additional testing is recommended in anycircumstance when false positive or false negative resultscould lead to adverse medical, social or psychologicalconsequences. Urine Urethral structure / Unknown 07/07/2024 11:30 AM EDT 07/07/2024 12:59 PM EDT Narrative [facility] - 07/07/2024 6:48 PM EDT Urine us Leora Peña DO LAB MICROBIOLOGY - GENERAL O RDERABLES Final Result [facility] [address] [place], [place] [phone] * Hepatitis B surface antigen, EIA (07/07/2024 11:30 AM EDT) Hepatitis B Surface Ag Negative Negative [facility] Blood Venous blood specimen / Unknown 07/07/2024 11:30 AM EDT 07/07/2024 12:58 PM EDT Leora Vijaygerson DO LAB BLOOD ORDERABLES Final R esult [facility] [address] [place] [phone] * Hepatitis B Core Antibody, Total (07/07/2024 11:30 AM EDT) Hepatitis B Core Antibody Nonreactive Nonreactive [facility] Blood Venous blood specimen / Unknown 07/07/2024 11:30 AM EDT 07/07/2024 12:58 PM EDT Leora Mariana DO LAB BLOOD ORDERABLES Final R esult Performing Organization Address [facility] Co de Phone Number [facility] [address] [place] [phone] * RPR (Monitor) with Reflex to??Titer (07/07/2024 11:30 AM EDT) RPR (Monitor) w/Refl Titer NON-REACTI VE NON-REACT BERTO [facility] Comment:THIS TEST WAS PERFOR MED AT:[employer] [place] [id number] YARBROUGH MD Rapid Plasma Reagin Ab Titer TNP [facility] Blood Venous blood specimen / Unknown 07/07/2024 11:30 AM EDT 07/07/2024 12:58 PM EDT Leora Mariana DO LAB BLOOD ORDERABLES Final R esult Performing Organization Address City/[facility]/ZIP Co de Phone Number [facility] [address] [place] [phone] * HIV-1/2 Antigen and Antibodies, Fourth Generation, with Reflexes (07/07/2024 11:30 AM EDT) HIV AB/AG Nonreactive Nonreactive [facility] Comment:HIV-1 p24 Ag and/or HIV-1/HIV-2 Ab not detected.A test result that is nonreactive does not exclude thepossibility of exposure to or infection with HIV-1 and/orHIV-2. Nonreactive results in this assay for individualswith prior exposure to HIV-1 and/or HIV-2 may be due toantigen and antibody levels that are below the limit ofdetection of this assay.The Free [employer] HIV Ag/Ab Combo assay result andsupplemental assay results should be interpreted inconjunction with the patient's clinical presentation,history and other laboratory results. If the results areinconsistent with clinical evidence, additional testing issuggested to confirm the result. Blood Venous blood specimen / Unknown 07/07/2024 11:30 AM EDT 07/07/2024 12:58 PM EDT Leora Peña LAB BLOOD ORDERABLES Final R esult Performing Organization Address City/[facility]/ZIP Co de Phone Number [facility] [address] [place] [phone] * Hepatitis B Surface Antibody, Qualitative (07/07/2024 11:30 AM EDT) Pathologist [facility] ~Hepatitis B Surface Antibody NONREACTIVE Nonreactive [facility] Comment:Nonreactive: < 8.00 mIU/mL Blood Venous blood specimen / Unknown 07/07/2024 11:30 AM EDT 07/07/2024 12:58 PM EDT us Leora Peña [employer] LAB BLOOD ORDERABLES Final R esult Performing Organization Address City/[facility]/ZIP Co de Phone Number [facility] [address] [place] [phone] * (ABNORMAL) CBC (07/07/2024 11:30 AM EDT) Pathologist [facility] White Blood Count 6.3 4.8 - 10.8 X10*3/uL [facility] Red Blood Count 5.05 4.20 - 5.50 X10*6/uL [facility] Hemoglobin 12.9 12.0 - 16.0 g/dl [facility] Hematocrit 39.1 37.0 - 47.0 % [facility] Mean Corpuscular Volume 77.4(L) 80.0 - 98.0 fL [facility] Mean Corpuscular Hemoglobin 25.5(L) 27.0 - 33.0 pg [facility] Mean Corpuscular HGB Conc 33.0 31.0 - 35.0 g/dl [facility] Red Cell Distribution Width 13.6 11.0 - 16.0 % [facility] Platelet Count 310 160 - 400 X10*3/uL [facility] Mean Platelet Volume 10.1 9.4 - 12.3 fL [facility] NRBC Pct Auto 0.0 0.0 - 0.2 /100WBC [facility] NRBC Abs Auto 0.000 0.0 - 0.012 X10*3/uL [facility] Blood Venous blood specimen / Unknown 07/07/2024 11:30 AM EDT 07/07/2024 12:58 PM EDT Leora Peña DO LAB BLOOD ORDERABLES Final R esult Performing Organization Address City/[facility] Co de Phone Number [facility] [address] [place] [address] [phone] * TSH (07/07/2024 11:30 AM EDT) Thyroid Stimulating Hormone 1.23 0.32 - 4.0 uIU/mL [facility] Comment:TSH 3rd Generation ( [facility]) Blood Venous blood specimen / Unknown 07/07/2024 11:30 AM EDT 07/07/2024 12:58 PM EDT Leora Peña DO LAB BLOOD ORDERABLES Final R esult [facility] [address] [place] [phone] * T4, Free (07/07/2024 11:30 AM EDT) Free T4 (Free Thyroxine) 1.10 0.71 - 1.85 ng/dL [facility] Blood Venous blood specimen / Unknown 07/07/2024 11:30 AM EDT 07/07/2024 12:58 PM EDT Leora Peña DO LAB BLOOD ORDERABLES Final R esult [facility] [address] [place] [address] [phone] * Hemoglobin A1c (07/07/2024 11:30 AM EDT) [facility] Hemoglobin A1c 5.9 <6.0 % [facility] Comment:Hemoglobin A1C Refer ence Range Adults: 4.8 - 6.0 % Non diabetic: < 6.0 % Goal: < 7.0 %Additional Action Suggested: > 8.0 %Note: Hemoglobin A1c results are invalid for patients with abnormal amounts of HbF. Blood transfusions may impact the HbA1c concentration in the patient sample. Estimated Average Glucose 123 mg/dL [facility] Comment:eAG = Estimated ave rage glucose which is %A1C expressed asaverage glucose, using the formula of the W4A-QvwnpqlXienyco Glucose study (ADAG), Diabetes Care, Vol.31,#8,Sep. 2007 Blood Venous blood specimen / Unknown 07/07/2024 11:30 AM EDT 07/07/2024 12:58 PM EDT Leora Peña DO LAB BLOOD ORDERABLES Final R esult [facility] [address] [place] [phone] * Hepatic Function Panel (07/07/2024 11:30 AM EDT) Bilirubin, Total 0.6 0.0 - 1.0 mg/dL [facility] Bilirubin, Direct 0.2 0.0 - 0.5 mg/dL [facility] Aspartate Amino Transferase 19 5 - 31 U/L [facility] Alanine Aminotransferase 15 0 - 31 U/L [facility] Total Protein 7.4 6.5 - 8.0 g/dL [facility] Albumin Level 4.1 3.5 - 5.0 g/dL [facility] Alkaline Phosphatase 72 39 - 117 U/L [facility] Blood Venous blood specimen / Unknown 07/07/2024 11:30 AM EDT 07/07/2024 12:58 PM EDT us Leora Peña DO LAB BLOOD ORDERABLES Final R esult [facility] [address] [place] [phone] * Lipid Panel, Standard (07/07/2024 11:30 AM EDT) Triglycerides 140 <150 mg/dL [facility] Comment:Desirable Triglyceri de: less than 150 mg/dLBorderline High Triglyceride 150-199 mg/dLHigh Triglyceride: 200-499 mg/dLVery High Triglyceride: greater than or equal to 5OO mg/dL Cholesterol 170 <200 mg/dL [facility] Comment:Desirable Cholestero l: less than 200 mg/dLBorderline High Cholesterol: 200-239 mg/dLHigh Cholesterol: greater than 239 mg/dL LDL Cholesterol Calculated 95 <100 mg/dL [facility] Comment:Desirable LDL: less than 100 mg/dLNear Optimal/Above Optimal LDL: 110- 129 mg/dLBorderline High LDL: 130-159 mg/dLHigh LDL: 160-189 mg/dLVery High LDL: greater than or equal to 190 mg/dL HDL Cholesterol 47 >40 mg/dL [facility] Comment:Desirable HDL: great er than 40 mg/dL Note: This HDL assay may give artificially low results in patients with liver disease. Blood Venous blood specimen / Unknown 07/07/2024 11:30 AM EDT 07/07/2024 12:58 PM EDT Leora Peña DO LAB BLOOD ORDERABLES Final R esult Performing Organization Address [facility] Co de Phone Number [facility] [address] [place] [phone] * Basic Metabolic Panel (07/07/2024 11:30 AM EDT) Sodium 140 135 - 145 mmol/L [facility] Potassium 3.7 3.3 - 5.1 mmol/L [facility] Chloride 105 96 - 108 mmol/L [facility] Carbon Dioxide 27 22 - 29 mmol/L [facility] Anion Gap 12 12 - 20 [facility] Urea Nitrogen (BUN) 12 9 - 16 mg/dL [facility] Creatinine, Serum 0.76 0.5 - 1.4 mg/dL [facility] Estimated Glomerular Filt Rate >60 [facility] Comment:Chronic Kidney Disea se: Estimated GFR < 60 mL/min/1.92f9Noohfi Kidney Disease: Estimated GFR < 15 mL/min/1.73m2 Glucose 101 60 - 115 mg/dL [facility] Calcium 9.5 8.4 - 10.2 mg/dL [facility] Blood Venous blood specimen / Unknown 07/07/2024 11:30 AM EDT 07/07/2024 12:58 PM EDT Leora Peña DO LAB BLOOD ORDERABLES Final R esult Performing Organization Address [facility]/ZIP Co de Phone Number [facility] [address] [place] [phone] * XR Hand 3+ Views Left (07/07/2024 11:16 AM EDT) Anatomical Region Laterality Modality Upper Extremities, Hand Left Radiogra phic Imaging 07/07/2024 11:1 6 AM EDT Narrative 07/07/2024 12:28 PM EDT ?[facility] ?[address] ?[place] [address] ?XRay Report ? Signed ? Patient: Kj,Charaudie ?MR#: [id number] ?? 6621 ? : 1980 ?Acct:[id number] ? Age/Sex: 43 / F ?ADM Date: 07/07/24 ? Loc: HO.HHCX ? Attending Dr: Leora Peña DO ? Ordering Physician: Leora Peña DO ?? Date of Service: 07/07/24 ?? Procedure(s): XR hand LT min 3V ?? Accession Number(s): [id number] ? cc: Leora Peña DO ? EXAMINATION: [...] DD/ 1116 ? TD/TT: 07/07/24 1120 ? Photograph Enlarger: ? Procedure Note Ingrid Omer - 07/07/[address] [address] XRay Report Signed Patient: Delfin Underwood#: [id number] : 1980Acct:[id number] Age/Sex: 43 / FADM Date: 07/07/24 Loc: .HHCX Attending Dr: Leora Peña DO Ordering Physician: Leora Peña DO Date of Service: 07/07/24 Procedure(s): XR hand LT min 3V Accession Number(s): [id number] cc: Leora Peña DO EXAMINATION: XR HAND, [...] 07/07/24 1226 DD/ 1116 TD/TT: 07/07/24 1120 Photograph Enlarger: Leora Peña DO IMG XR PROCEDURES Edited Res ult - Final * XR Wrist 3+ Views Left (07/07/2024 11:16 AM EDT) Anatomical Region Laterality Modality Upper Extremities, Wrist Left Radiogr aphic Imaging 07/07/2024 11:1 6 AM EDT Narrative 07/07/2024 12:28 PM EDT ?[facility] ?[address] ?[place] [address] ?XRay Report ? Signed ? Patient: Delfin Underwood ?MR#: [id number] ?? [id number] ? : 1980 ?Acct:[id number] ? Age/Sex: 43 / F ?ADM Date: 05/08/25 ? Loc: HO.HHCX ? Attending Dr: Leora Peña DO ? Ordering Physician: Leora Peña DO ?? Date of Service: 07/07/24 ?? Procedure(s): XR wrist LT min 3V ?? Accession Number(s): [id number] ? cc: Leora Peña DO ? EXAMINATION: [...] DD/ 1116 ? TD/TT: 07/07/24 1120 ? Photograph Enlarger: ? Procedure Note Ingrid Omer - 07/07/[address] [address] XRay Report Signed Patient: Delfin UnderwoodMR#: [id number] : 1980Acct:[id number] Age/Sex: 43 / FADM Date: 07/07/24 Loc: HO.HHCX Attending Dr: Leora Peña DO Ordering Physician: Leora Peña DO Date of Service: 07/07/24 Procedure(s): XR wrist LT min 3V Accession Number(s): [id number] cc: Leora Peña DO EXAMINATION: XR WRIST, [...] 07/07/24 1225 DD/ 1116 TD/TT: 07/07/24 1120 Photograph Enlarger: Leora Peña DO IMG XR PROCEDURES Edited Res ult - Final from Last 3 Months Insurance [facility] C3 DENTAL-[facility] MEDICAID STAND ADULT Care Teams Board Finisher Relationship Specialty Start Date End Date Leora Peña DO [address] [place] [phone] PCP - General Family Medicine 07/07/24
== END 2024-07-19 09:13 | disposition home or self-care (01) ==
LOC: HO.NEURO 09:12
PROVIDERS: PCP Family Medicine; Visit Provider Family Medicine
DX: R20.0 Anesthesia of skin (principal); M25.532 Pain in left wrist
CPT/HCPCS: 95886; 95910

== ENCOUNTER 2024-07-21 09:16 | Outpatient (REF) | payer MEDICAID, SELFPAY ==
--- NOTE | ~2024-07-21 | XR_ITS ---
EXAMINATION: XR CHEST 2 VIEWS HISTORY: positive T-spot COMPARISON: There are no prior studies for comparison. FINDINGS: PA and lateral views of the chest are submitted. The lungs are expanded and clear. There is no pleural effusion, pneumothorax, or pulmonary vascular congestion. The heart is normal in size. The bones are intact. XR/XR chest 2V IMPRESSION: No acute cardiopulmonary abnormality. Electronically signed by: Loco Murphy MD 07/21/2024 09:48 AM EDT
--- OUTSIDE RECORDS SUMMARY | 2024-07-21 09:30 | XMS_ITS | Clinical Summary ---
Author Organization [employer] Address [address] [facility] 7t [place] [address] Care Team Providers Care Forensic Document Examiner Name Role Phone Leora Peña DO Primary Care Provider + [phone] Allergies No known active allergies Medications * [...] Type Department Care Team Description 07/12/[address] [facility] MEDICINE [address] [place] [phone] Leora Peña DO Results 07/11/2024 Orders Only 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 [place] [address] Leora Peña DO 07/07/2024 9:40 AM EDT Office Visit [facility] [place] [address] Leora Peña DO Numbness of left hand (Primary Dx); Left wrist pain; Trigger middle finger of left hand; Skin lesion; Anxiety 05/13/2024 Population Health Risk Score [facility] () Department [address] [place] [phone] Provider, Population Health Generic from Last [...] 25-Hydroxy, Total, Immunoassay (07/07/2024 11:30 AM EDT) [facility] Vitamin D 25-OH Total 22.4(L) >30 ng/mL [facility] Comment: Health Based Reference Values*< 20 ??ng/mL ??Pznspquxw72-27 ng/mL ??Insufficient> 30 ??ng/mL ??Sufficient*Haris GUTIÉRREZ. N [...] DO LAB BLOOD ORDERABLES Final R esult [facility] [address] [place] [phone] * (ABNORMAL) T-SPOT??.TB (07/07/2024 11:30 AM EDT) T Spot TB Positive( A) Negative [facility] Comment: Diagnosing or excluding tuberculosis [...] as aquantitative test. TS PANEL A 26 [facility] TS PANEL B 12 [facility] Negative Control Passed [facility] Positive Control Passed [facility] Comment:For additional infor shanell, please refer tohttp://education.Intent Media/faq/ZKG864(This link is being provided for informational/educational purposes only.)THIS TEST WAS PERFORMED AT:[employer] [id number] [place] [id number] VILLAFANA MD,PHD 07/07/2024 11:3 0 AM EDT 07/07/2024 12:58 PM EDT Leora Peña DO LAB BLOOD ORDERABLES Final R esult Performing Organization Address City/State/[facility] Co de Phone Number [facility] [address] [place] [phone] * Hepatitis C Antibody with Reflex to HCV, RNA, Quantitative, Real-Time PCR (07/07/2024 11:30 AM EDT) [facility] Hepatitis C Antibody Nonreactive Nonreactive [facility] Comment:Antibodies to HCV no t detected; does not exclude early acuteHCV infection. Blood Venous blood specimen / Unknown 07/07/2024 11:30 AM EDT 07/07/2024 12:58 PM EDT Leora Peña LAB BLOOD ORDERABLES Final R [facility] Performing Organization Address [facility] Co de Phone Number [facility] [address] [place] [phone] * Hepatitis A Antibody, Total (07/07/2024 11:30 AM EDT) [facility] Hepatitis A Antibody IgG REACTIVE Nonreactive [facility] Comment:The presence of IgG anti-HAV implies past HAV infection(recent or distant) or vaccination against HAV. Blood Venous blood specimen / Unknown 07/07/2024 11:30 AM EDT 07/07/2024 12:58 PM EDT Leora Peña DO LAB BLOOD ORDERABLES Final R [facility] Performing Organization Address [facility] Co de Phone Number [facility] [address] [place] [phone] * Chlamydia/N. Gonorrhoeae RNA, TMA, Urogenitial (07/07/2024 11:30 AM EDT) [facility] CT PCR NOT DETECTED Not Detect. [facility] Comment:A not detected test result [...] psychologicalconsequences. NG PCR NOT DETECTED Not Detect. [facility] Comment:A not detected test result [...] AM EDT 07/07/2024 12:59 PM EDT Narrative [facility] - 07/07/2024 6:48 PM EDT Urine us Leora Peña DO LAB MICROBIOLOGY - GENERAL O RDERABLES Final Result [facility] [address] [place], [place] [phone] * Hepatitis B surface antigen, EIA (07/07/2024 11:30 AM EDT) Hepatitis B Surface Ag Negative Negative [facility] Blood Venous blood specimen / Unknown 07/07/2024 11:30 AM EDT 07/07/2024 12:58 PM EDT Leora Vijaygerson DO LAB BLOOD ORDERABLES Final R esult [facility] [address] [place] [phone] * Hepatitis B Core Antibody, Total (07/07/2024 11:30 AM EDT) Hepatitis B Core Antibody Nonreactive Nonreactive [facility] Blood Venous blood specimen / Unknown 07/07/2024 11:30 AM EDT 07/07/2024 12:58 PM EDT Leora Mariana DO LAB BLOOD ORDERABLES Final R esult Performing Organization Address [facility] Co de Phone Number [facility] [address] [place] [phone] * RPR (Monitor) with Reflex to??Titer (07/07/2024 11:30 AM EDT) RPR (Monitor) w/Refl Titer NON-REACTI VE NON-REACT BERTO [facility] Comment:THIS TEST WAS PERFOR MED AT:[employer] [place] [phone] YARBROUGH MD Rapid Plasma Reagin Ab Titer TNP [facility] Blood Venous blood specimen / Unknown 07/07/2024 11:30 AM EDT 07/07/2024 12:58 PM EDT Leora Mariana DO LAB BLOOD ORDERABLES Final R esult Performing Organization Address City/[facility]/ZIP Co de Phone Number [facility] [address] [place] [phone] * HIV-1/2 Antigen and Antibodies, Fourth Generation, with Reflexes (07/07/2024 11:30 AM EDT) HIV AB/AG Nonreactive Nonreactive [facility] Comment:HIV-1 p24 Ag and/or HIV-1/HIV-2 Ab not detected.A test result that is nonreactive does not exclude thepossibility of exposure to or infection with HIV-1 and/orHIV-2. Nonreactive results in this assay for individualswith prior exposure to HIV-1 and/or HIV-2 may be due toantigen and antibody levels that are below the limit ofdetection of this assay.The [employer] HIV Ag/Ab Combo assay result andsupplemental assay results should be interpreted inconjunction with the patient's clinical presentation,history and other laboratory results. If the results areinconsistent with clinical evidence, additional testing issuggested to confirm the result. Blood Venous blood specimen / Unknown 07/07/2024 11:30 AM EDT 07/07/2024 12:58 PM EDT Leora Peña LAB BLOOD ORDERABLES Final R esult Performing Organization Address City/[facility]/ZIP Co de Phone Number [facility] [address] [place] [phone] * Hepatitis B Surface Antibody, Qualitative (07/07/2024 11:30 AM EDT) Pathologist [facility] ~Hepatitis B Surface Antibody NONREACTIVE Nonreactive [facility] Comment:Nonreactive: < 8.00 mIU/mL Blood Venous blood specimen / Unknown 07/07/2024 11:30 AM EDT 07/07/2024 12:58 PM EDT us Leora Peña [employer] LAB BLOOD ORDERABLES Final R esult Performing Organization Address City/[facility]/ZIP Co de Phone Number [facility] [address] [place] [phone] * (ABNORMAL) CBC (07/07/2024 11:30 AM EDT) Pathologist [facility] White Blood Count 6.3 4.8 - 10.8 X10*3/uL [facility] Red Blood Count 5.05 4.20 - 5.50 X10*6/uL [facility] Hemoglobin 12.9 12.0 - 16.0 g/dl [facility] Hematocrit 39.1 37.0 - 47.0 % [facility] Mean Corpuscular Volume 77.4(L) 80.0 - 98.0 fL [facility] Mean Corpuscular Hemoglobin 25.5(L) 27.0 - 33.0 pg [facility] Mean Corpuscular HGB Conc 33.0 31.0 - 35.0 g/dl [facility] Red Cell Distribution Width 13.6 11.0 - 16.0 % [facility] Platelet Count 310 160 - 400 X10*3/uL [facility] Mean Platelet Volume 10.1 9.4 - 12.3 fL [facility] NRBC Pct Auto 0.0 0.0 - 0.2 /100WBC [facility] NRBC Abs Auto 0.000 0.0 - 0.012 X10*3/uL [facility] Blood Venous blood specimen / Unknown 07/07/2024 11:30 AM EDT 07/07/2024 12:58 PM EDT Leora Peña DO LAB BLOOD ORDERABLES Final R esult Performing Organization Address City/[facility] Co de Phone Number [facility] [address] [place] [address] [phone] * TSH (07/07/2024 11:30 AM EDT) Thyroid Stimulating Hormone 1.23 0.32 - 4.0 uIU/mL [facility] Comment:TSH 3rd Generation ( [facility]) Blood Venous blood specimen / Unknown 07/07/2024 11:30 AM EDT 07/07/2024 12:58 PM EDT Leora Peña DO LAB BLOOD ORDERABLES Final R esult [facility] [address] [place] [phone] * T4, Free (07/07/2024 11:30 AM EDT) Free T4 (Free Thyroxine) 1.10 0.71 - 1.85 ng/dL [facility] Blood Venous blood specimen / Unknown 07/07/2024 11:30 AM EDT 07/07/2024 12:58 PM EDT Leora Peña DO LAB BLOOD ORDERABLES Final R esult [facility] [address] [place] [address] [phone] * Hemoglobin A1c (07/07/2024 11:30 AM EDT) [facility] Hemoglobin A1c 5.9 <6.0 % [facility] Comment:Hemoglobin A1C Refer ence Range Adults: 4.8 - 6.0 % Non diabetic: < 6.0 % Goal: < 7.0 %Additional Action Suggested: > 8.0 %Note: Hemoglobin A1c results are invalid for patients with abnormal amounts of HbF. Blood transfusions may impact the HbA1c concentration in the patient sample. Estimated Average Glucose 123 mg/dL [facility] Comment:eAG = Estimated ave rage glucose which is %A1C expressed asaverage glucose, using the formula of the [id number] Glucose study (ADAG), Diabetes Care, Vol.31,#8,Sep. 2007 Blood Venous blood specimen / Unknown 07/07/2024 11:30 AM EDT 07/07/2024 12:58 PM EDT Leora Peña DO LAB BLOOD ORDERABLES Final R esult [facility] [address] [place] [phone] * Hepatic Function Panel (07/07/2024 11:30 AM EDT) Bilirubin, Total 0.6 0.0 - 1.0 mg/dL [facility] Bilirubin, Direct 0.2 0.0 - 0.5 mg/dL [facility] Aspartate Amino Transferase 19 5 - 31 U/L [facility] Alanine Aminotransferase 15 0 - 31 U/L [facility] Total Protein 7.4 6.5 - 8.0 g/dL [facility] Albumin Level 4.1 3.5 - 5.0 g/dL [facility] Alkaline Phosphatase 72 39 - 117 U/L [facility] Blood Venous blood specimen / Unknown 07/07/2024 11:30 AM EDT 07/07/2024 12:58 PM EDT us Leora Peña DO LAB BLOOD ORDERABLES Final R esult [facility] [address] [place] [address] [phone] * Lipid Panel, Standard (07/07/2024 11:30 AM EDT) Triglycerides 140 <150 mg/dL [facility] Comment:Desirable Triglyceri de: less than 150 mg/dLBorderline High Triglyceride 150-199 mg/dLHigh Triglyceride: 200-499 mg/dLVery High Triglyceride: greater than or equal to 5OO mg/dL Cholesterol 170 <200 mg/dL [facility] Comment:Desirable Cholestero l: less than 200 mg/dLBorderline High Cholesterol: 200-239 mg/dLHigh Cholesterol: greater than 239 mg/dL LDL Cholesterol Calculated 95 <100 mg/dL [facility] Comment:Desirable LDL: less than 100 mg/dLNear Optimal/Above Optimal LDL: 110- 129 mg/dLBorderline High LDL: 130-159 mg/dLHigh LDL: 160-189 mg/dLVery High LDL: greater than or equal to 190 mg/dL HDL Cholesterol 47 >40 mg/dL [facility] Comment:Desirable HDL: great er than 40 mg/dL Note: This HDL assay may give artificially low results in patients with liver disease. Blood Venous blood specimen / Unknown 07/07/2024 11:30 AM EDT 07/07/2024 12:58 PM EDT Leora Peña DO LAB BLOOD ORDERABLES Final R esult Performing Organization Address [facility] Co de Phone Number [facility] [address] [place] [phone] * Basic Metabolic Panel (07/07/2024 11:30 AM EDT) Sodium 140 135 - 145 mmol/L [facility] Potassium 3.7 3.3 - 5.1 mmol/L [facility] Chloride 105 96 - 108 mmol/L [facility] Carbon Dioxide 27 22 - 29 mmol/L [facility] Anion Gap 12 12 - 20 [facility] Urea Nitrogen (BUN) 12 9 - 16 mg/dL [facility] Creatinine, Serum 0.76 0.5 - 1.4 mg/dL [facility] Estimated Glomerular Filt Rate >60 [facility] Comment:Chronic Kidney Disea se: Estimated GFR < 60 mL/min/1.21e5Dayotb Kidney Disease: Estimated GFR < 15 mL/min/1.73m2 Glucose 101 60 - 115 mg/dL [facility] Calcium 9.5 8.4 - 10.2 mg/dL [facility] Blood Venous blood specimen / Unknown 07/07/2024 11:30 AM EDT 07/07/2024 12:58 PM EDT Leora Peña DO LAB BLOOD ORDERABLES Final R esult Performing Organization Address [facility]/ZIP Co de Phone Number [facility] [address] [place] [phone] * XR Hand 3+ Views Left (07/07/2024 11:16 AM EDT) Anatomical Region Laterality Modality Upper Extremities, Hand Left Radiogra phic Imaging 07/07/2024 11:1 6 AM EDT Narrative 07/07/2024 12:28 PM EDT ?[facility] ?[address] ?[place] [address] ?XRay Report ? Signed ? Patient: Kj,Charaudie ?MR#: [id number] ?? [id number] ? : 1980 ?Acct:[id number] ? Age/Sex: 43 / F ?ADM Date: 07/07/24 ? Loc: HO.HHCX ? Attending Dr: Leora Peña DO ? Ordering Physician: Leora Peña DO ?? Date of Service: 07/07/24 ?? Procedure(s): XR hand LT min 3V ?? Accession Number(s): [id number] ? cc: Leora Peña DO ? EXAMINATION: [...] DD/ 1116 ? TD/TT: 07/07/24 1120 ? Telemarketing Fundraiser: ? Procedure Note Ingrid Omer - 07/07/[address] [address] XRay Report Signed Patient: Delfin Underwood#: [id number] : 1980Acct:[id number] Age/Sex: 43 / FADM Date: 07/07/24 Loc: .HHCX Attending Dr: Leora Peña DO Ordering Physician: Leora Peña DO Date of Service: 07/07/24 Procedure(s): XR hand LT min 3V Accession Number(s): [id number] cc: Leora Peña DO EXAMINATION: XR HAND, [...] 07/07/24 1226 DD/ 1116 TD/TT: 07/07/24 1120 Telemarketing Fundraiser: Leora Peña DO IMG XR PROCEDURES Edited Res ult - Final * XR Wrist 3+ Views Left (07/07/2024 11:16 AM EDT) Anatomical Region Laterality Modality Upper Extremities, Wrist Left Radiogr aphic Imaging 07/07/2024 11:1 6 AM EDT Narrative 07/07/2024 12:28 PM EDT ?[facility] ?[address] ?[place] [address] ?XRay Report ? Signed ? Patient: Delfin Underwood ?MR#: [id number] ?? [id number] ? : 1980 ?Acct:[id number] ? Age/Sex: 43 / F ?ADM Date: 05/08/25 ? Loc: HO.HHCX ? Attending Dr: Leora Peña DO ? Ordering Physician: Leora Peña DO ?? Date of Service: 07/07/24 ?? Procedure(s): XR wrist LT min 3V ?? Accession Number(s): [id number] ? cc: Leora Peña DO ? EXAMINATION: [...] DD/ 1116 ? TD/TT: 07/07/24 1120 ? Telemarketing Fundraiser: ? Procedure Note Ingrid Omer - 07/07/[address] [address] XRay Report Signed Patient: Delfni UnderwoodMR#: [id number] : 1980Acct:[id number] Age/Sex: 43 / FADM Date: 07/07/24 Loc: HO.HHCX Attending Dr: Leora Peña DO Ordering Physician: Leora Peña DO Date of Service: 07/07/24 Procedure(s): XR wrist LT min 3V Accession Number(s): [id number] cc: Leora Peña DO EXAMINATION: XR WRIST, [...] 07/07/24 1225 DD/ 1116 TD/TT: 07/07/24 1120 Telemarketing Fundraiser: Leora Peña DO IMG XR PROCEDURES Edited Res ult - Final from Last 3 Months [facility] MEDICAID STAND ADULT Care Teams Forensic Document Examiner Relationship Specialty Start Date End Date Leora Peña DO [address] [place] [phone] PCP - General Family Medicine 07/07/24
--- OUTSIDE RECORDS SUMMARY | 2024-07-21 09:30 | XMS_ITS | Encounter Summary ---
Author Organization [employer] Address [address] [facility] 7t [place] [address] Care Team Providers Care Rivet Thrower Name Role Phone Leora Peña DO Primary Care Provider [phone] Reason for Visit * Reason Onset Date Comments Results 07/12/2024 Encounter Details Date Type Department Care Team ([facility] st Contact Info) Description 07/12/2024 Telephone [facility] MEDICINE [address] [place] [phone] Leora Peña DO [address] [place] [address] Results Social History Tobacco Use Types Packs/Day Years Used Date Smoking Tobacco: Never Depression Answer Date Recorded Patient Health Questionnaire-9 [...] AM EDT documented as of this encounter Miscellaneous Notes * Telephone Encounter - Vesna Patel RN - 07/20/2024 1:01 PM EDT Per chart review, patient has NOT completed CXR to r/o active TB. TC placed to patient [phone] via [employer] (#[id number]). Patient reports she came to [facility] in [place] and told them she needs a TB test and patient reports they informed her they do not complete TB testing in [facility]. Patient advised she needs to come to the [facility] to have chest Xray completed not a TB test. Patient reports she does not speak bolivian and she attempted to tell them the number who called her but she was informed it was not from [facility]. Patient feeling frustrated d/t language barrier. Patient advised RN will call to [facility] and inform them she is coming tomorrow for a chest Xray and inform them of language patient speaks is Malian Creole in order to prevent confusion. Patient verbalized understanding. RN will postpone message for one week to check results and complete [facility] TB referral. * Telephone Encounter - Vesna Patel RN - 07/12/2024 12:04 PM EDT RN reviewed Tspot results with PCP which have returned positive. Patient will need to have CXR and be referred to TB clinic once CXR results return. TC placed to patient [phone] via [employer] ([phone] [phone]) to inform of positive Tspot results. Patient reports her father had tuberculosis in the past. Patient reports father lived in [facility] and received tx for TB in the past. Patient reports father is no longer living. Patient advised of needingto complete CXR to determine if patient has active or latent TB. Patient advised to [facility] or at [facility]. Patient advised once CXR results are received, patient will be notified via telephone call. Patient reports she will come to [facility] today to have CXR completed. Patient aware she will be referred to TB clinic once CXR results are received and reviewed. documented in this encounter Plan of Treatment Not on file documented as of this encounter Visit Diagnoses Diagnosis Positive TB test documented in this encounter Additional Health Concerns Assessment Noted Time PHQ-9 Depression Total Score: 6 07/08/19 25 11:49 AM EDT documented as of this encounter Care Teams Rivet Thrower Relationship Specialty Start Date End Date Leora Peña DO [address] [place] [phone] PCP - General Family Medicine 07/07/24 documented as of this encounter
== END 2024-07-21 09:17 | disposition home or self-care (01) ==
LOC: HO.HHCX 09:16
PROVIDERS: Visit Provider Family Medicine
DX: R76.11 Nonspecific reaction to tuberculin skin test without active tuberculosis (principal)
CPT/HCPCS: 71046

== ENCOUNTER → 2024-07-21 09:17 | Outpatient (BNV) | payer MEDICAID, SELFPAY | PROVIDERS: Visit Provider Radiology Diagnostic Radiology | DX: R76.11 Nonspecific reaction to tuberculin skin test without active tuberculosis (principal) | CPT/HCPCS: 71046 ==

== ENCOUNTER 2024-10-20 10:53 | Outpatient (AMB) | payer MEDICAID, SELFPAY ==
--- NOTE | 2024-10-20 10:55 | A.OFFVIS_ITS ---
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 Patient also complains of left hand numbness and tingling, worse at night, primarily affecting her left middle finger. She states it is most bothersome at night. Per [facility] referral, patient was started on gabapentin and advised to take Tylenol and naproxen PRN, and to wear braces nightly. Patient was unable to tolerate naproxen. She has not use the hand braces she was provided with. No injuries or surgeries to the left hand. 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 Patient also complains of left hand numbness and tingling, worse at night, primarily affecting her left middle finger. She states it is most bothersome at night. Per [facility] referral, patient was started on gabapentin and advised to take Tylenol and naproxen PRN, and to wear braces nightly. Patient was unable to tolerate naproxen. She has not use the hand braces she was provided with. No injuries or surgeries to the left hand. Review of Systems Const All systems reviewed & are unremarkable except as noted in HPI and below Physical Exam Vital Signs: BMI result Body Mass Index 43.1 Extrem Other: Neuro: Normal sensation of the tips of all digits of both hands in the office today No thenar or intrinsic wasting. Good APB muscle firing and good finger cross. Vascular: Capillary refill brisk. ROM: There is visible and palpable locking and catching of the left middle finger in the office today Patient can make a fist and extend all their digits. Skin: No lacerations or abrasions noted. General: No ecchymosis. No erythema or evidence of infection. [] Office Procedures AMB Tendon Injection Tendon Injection [id number] Tendon Sheath Injection All charges added?: Procedure code (CPT) selection complete Assessment & Plan Assessment & Plan (1) Trigger finger, left middle finger: Code(s): M65.332 - Trigger finger, left middle finger Category: Medical Plan 1. Trigger finger, left middle finger Patient is educated about this condition Patient is educated about the treatment options available Patient would like to proceed with steroid injection at that time The risks and benefits of a steroid injection including but not limited to risk of damage to blood vessels, nerves, tendons, infection, skin bleaching, failure to improve symptoms, increased pain, and possible need for further injections or other intervention were discussed with the patient and the patient wishes to proceed with the steroid injection. Once consent was obtained, I sterilely prepped the area over the A1 ashutosh of the flexor tendon sheath of the left middle finger. I then injected the flexor tendon sheath with a combination of 1 mL of dexamethasone (4mg/ml), and 1% lidocaine. The patient tolerated the procedure well with no complications. If the patient continues to have locking and catching 4-6 weeks following this injection, they may call to schedule appointment to discuss alternative treatment options Follow-up prn Coding Level of Care Code New Pt Level 3 (56538) Diagnoses Trigger finger, left middle finger M65.332 CPT Codes Tendon Injection - Tendon Injection 1: [id number] Tendon Sheath Injection ([id number])
[2024-10-20 11:00] VITALS: BMI 43.1
--- OUTSIDE RECORDS SUMMARY | 2024-10-20 12:26 | XMS_ITS | Clinical Summary ---
Author Organization [facility] Address [address] [place] [address] Care Team Providers Care Head Strength And Conditioning Coach Name Role Phone Unavailable Primary Care Provider Unavailabl e Source Comments PLEASE NOTE, if this patient is a minor, it may be UNLAWFUL to discuss sensitive information that is contained in these records (such as FAMILY PLANNING, MENTAL HEALTH or SUBSTANCE ABUSE) with the minor patient's parent or other person without the patient's specific authorization.[facility] Social History Tobacco Use Types Packs/Day Years Used Date Smoking Tobacco: Never Assessed Comments Unknown Sex and Gender Information Value Date Recorded Sex Assigned at Female 09/01/2024 5:00 AM PDT Legal Sex Female 5:00 AM PDT Gender Identity Female 09/01/2024 5:00 AM PDT Sexual Orientation Not on file Plan of Treatment Upcoming Encounters Date Type Department Care Team ([facility] Contact Info) Description 10/25/2024 9:00 AM EDT Behavioral Health Visit [facility] [address] [place] [address] HERO GODINEZ [phone] Oswald Darling, [address] [place]O Godinez [phone] Health Maintenance Due Date Last Done Comments Anxiety Screening 1980 HPV Screening 1980 Pap + HPV 1980 Tobacco Screening 1980 Relationship Safety Screening/Counseling 12/14/1995 Hypertension Screening (#1) 1998 Imm-DTaP/Tdap/Td (1 - Tdap) 12/14/1999 Imm-Hepatitis B (1 of 3 - 19 + 3-dose series) 12/14/1999 Cervical Cancer Screening 2001 Pap Smear 2001 Breast Cancer Screening (Mammogram) 2020 Alcohol and Drug Screen 03/02/2024 Depression Annual Screen 03/02/2024 Imm-Influenza (#1) 2024 Diabetes Screening 07/08/2027 07/07/2024, 0 07/07/2024, 07/07/2024 Lipid Screening 07/07/2029 07/07/2024 [id number] Completed 04/12/2024, 02/01, 01/11/2021 HIV Screening Completed 07/07/2024, 07/07/2024 Hepatitis C Screening Completed 07/07/2024 Cervical Ablation/Cold-Knife Conization Discontinued Cervical Cryotherapy Discontinued Colposcopy Discontinued Endometrial Biopsy Discontinued Excision/Leep Discontinued HPV Genotyping Discontinued Vaginal Pap Discontinued Vulvoscopy Discontinued Insurance [facility] [place] [address]
--- OUTSIDE RECORDS SUMMARY | 2024-10-20 12:26 | XMS_ITS | Clinical Summary ---
Author Organization [facility] [employer] Address [address] [facility] [address] [place] [address] Care Team Providers Care Tool Hardener Name Role Phone AdamLeora hernandez Primary Care Provider Allergies No known active allergies Medications * This document contains information received from the source organization and may not represent a complete record from that organization. naproxen (Naprosyn) 500 MG tablet Take 1 tablet (500 mg) by mouth if needed in the morning and at bedtime for mild pain. 40 tablet 1 5 07/08/19 26 Active gabapentin (Neurontin) 300 MG capsule Take 1 capsule (300 mg) by mouth at bedtime. 30 capsule 3 5 07/08/19 26 Active Diclofenac Sodium 1 % gel Apply 2 g topically if needed in the morning, at noon, in the evening, and at bedtime (pain). 150 g 3 5 Active acetaminophen (Tylenol 8 Hour) 650 MG ER tablet Take 1 tablet (650 mg) by mouth every 8 (eight) hours if needed for mild pain. Do not crush, chew, or split. 40 tablet 1 5 Active cholecalciferol (Vitamin D-3) 50 MCG (2000 UT) capsule Take 1 capsule (50 mcg) by mouth Once per day. 90 capsule 3 5 07/09/19 26 Active Active Problems Problem Noted Date Diagnosed Date Anxiety 07/07/2024 Mild depression 07/07/2024 Resolved Problems Problem Noted Date Diagnosed Date Resolved Date History of COVID-19 07/07/2024 07/08/19 25 Immunizations Immunization Administration Dates Next Due Moderna Covid-19 Vaccine + 02/28/2021,01/12/20 21 Pfizer Covid-19 Vaccine 12+ 04/12/2024 [...] 100 07/07/2024 9:45 AM EDT Temperature 36.3 C (97.4 F) 07/07/2024 9:45 AM EDT Respiratory Rate 17 07/07/2024 9:45 AM EDT Oxygen Saturation 98% 07/07/2024 9:45 AM EDT Inhaled Oxygen Concentration - - Weight 101 kg (223 lb 3.2 oz) 07/07/2024 9:45 AM EDT Height - - Body Mass Index - - Plan of Treatment Upcoming Encounters Date Type Department Care Team (Late st Contact Info) Description 10/24/2024 8:00 AM EDT Office Visit [facility] [address] [place] [address] Sancho Anderson, [facility] [address] [place] [address] Health Maintenance Due Date Last Done Comments Dental Oral Exam 1980 Dental Prophylaxis 1980 Dental X-Ray: Bitewings 1980 Dental X-Ray: Full Mouth 1980 SDOH Screening 1980 Disability Screening 1980 Alcohol/Substance Use Screening 1992 Family Planning (PISQ) 12/14/1995 HPV Vaccines (1 - 3-dose series) 12/14/1995 DTaP/Tdap/Td Vaccines (1 - Tdap) 12/14/1999 Hepatitis B Vaccines (1 of 3 - 19+ 3-dose series) 12/14/1999 Pap Smear 2001 Cervical Cancer Screening 2010 HPV/Cotest 2010 Mammogram 2020 Influenza Vaccine (#1) 2024 Depression Screening 07/07/2025 07/07/2024, 07/07/2024 Diabetes: Hemoglobin [...] Years) and At-Risk Patients (6 to 49) Years Aged Out No longer eligible b ased on patient's age to complete this topic RSV under 20 months Aged Out No longe r eligible based on patient's age to complete this topic Rotavirus Vaccines Aged Out No longer eligible based on patient's age to complete this topic Procedures Procedure Name Priority Date/Time Associated Diagnosis Comments XR CHEST 2 VIEWS Urgent 07/21/2024 9:17 AM EDT Positive TB test HEPATITIS C AB W/REFL TO HCV RNA, [...] finger of left hand Skin lesion Anxiety from Last 3 Months or Most Recently Relevant to Health Maintenance Results * XR Chest 2 Views (07/21/2024 9:17 AM EDT) Anatomical Region Laterality Modality Chest Radiographic Radha ging 07/21/2024 9:17 AM EDT Narrative 07/21/2024 9:51 [place] [id number] XRay Report Signed Patient: Delfin Underwood MR#: [id number] : 1980 Acct:[id number] Age/Sex: 43 / F ADM Date: 07/21/24 Loc: HO.HHCX Attending Dr: Leora Peña DO Ordering Physician: Leora Peña DO Date of Service: 07/21/24 Procedure(s): XR chest 2V Accession Number(s): [id number] cc: Leora Peña DO EXAMINATION: XR CHEST 2 VIEWS HISTORY: positive T-spot COMPARISON: There are no prior studies for comparison. FINDINGS: PA and lateral views of the chest are submitted. The lungs are expanded and clear. There is no pleural effusion, pneumothorax, or pulmonary vascular congestion. The heart is normal in size. The bones are intact. XR/XR chest 2V IMPRESSION: No acute cardiopulmonary abnormality. Electronically signed by: Loco Murphy MD 07/21/2024 09:48 AM EDT Dictated By: Loco Murphy MD Signed By: <Electronically signed by Loco Murphy MD in OV> 07/21/24 0948 DD/ 6 TD/TT: 05/22/25 0941 Law Enforcement Instructor: Procedure Note Donotuseinterpreter, Image - 07/21/2024 [facility] [address] [place] [address] XRay Report Signed Patient: Delfin UnderwoodMR#: [id number] : 1980Acct:[id number] Age/Sex: 43 / FADM Date: 07/21/24 Loc: HO.HHCX Attending Dr: Leora Peña DO Ordering Physician: Leora Peña DO Date of Service: 07/21/24 Procedure(s): XR chest 2V Accession Number(s): [id number] cc: Leora Peña DO EXAMINATION: XR CHEST 2 VIEWS HISTORY: positive T-spot COMPARISON: There are no prior studies for comparison. FINDINGS: PA and lateral views of the chest are submitted. The lungs are expanded and clear. There is no pleural effusion, pneumothorax, or pulmonary vascular congestion. The heart is normal in size. The bones are intact. XR/XR chest 2V IMPRESSION: No acute cardiopulmonary abnormality. Electronically signed by: Loco Murphy MD 07/21/2024 09:48 AM EDT Dictated By: Loco Murphy MD Signed By: <Electronically signed by Loco Murphy MD in OV> 07/21/24 0948 DD/ TD/TT: 07/21/24940 Law Enforcement Instructor: Leora Peña DO IMG XR PROCEDURES Edited Res ult - Final * Hepatitis C Antibody with Reflex to HCV, RNA, Quantitative, Real-Time PCR (07/07/2024 11:30 AM EDT) Hepatitis C Antibody Nonreactive Nonreactive [facility] Comment:Antibodies to HCV no t detected; does not exclude early acuteHCV infection. Blood Venous blood specimen / Unknown 07/07/2024 11:30 AM EDT 07/07/2024 12:58 PM EDT us Leora Mariana DO LAB BLOOD ORDERABLES Final R esult Performing Organization Address City/[facility]/ZIP Co de Phone Number [facility] [address] [place] [phone] * HIV-1/2 Antigen and Antibodies, Fourth Generation, with Reflexes (07/07/2024 11:30 AM EDT) HIV AB/AG Nonreactive Nonreactive [facility] Comment:HIV-1 p24 Ag and/or HIV-1/HIV-2 Ab not detected.A test result that is nonreactive does not exclude thepossibility of exposure to or infection with HIV-1 and/orHIV-2. Nonreactive results in this assay for individualswith prior exposure to HIV-1 and/or HIV-2 may be due toantigen and antibody levels that are below the limit ofdetection of this assay.The [employer] HIV Ag/Ab Combo assay result andsupplemental assay results should be interpreted inconjunction with the patient's clinical presentation,history and other laboratory results. If the results areinconsistent with clinical evidence, additional testing issuggested to confirm the result. Blood Venous blood specimen / Unknown 07/07/2024 11:30 AM EDT 07/07/2024 12:58 PM EDT Leora Mariana DO LAB BLOOD ORDERABLES Final R estefaníault Performing Organization Address City/[facility]/ZIP Co de Phone Number [facility] [address] [place] [phone] [phone] * Hemoglobin A1c (07/07/2024 11:30 AM EDT) Hemoglobin A1c 5.9 <6.0 % [facility] Comment:Hemoglobin A1C Refer ence Range Adults: 4.8 - 6.0 % Non diabetic: < 6.0 % Goal: < 7.0 %Additional Action Suggested: > 8.0 %Note: Hemoglobin A1c results are invalid for patients with abnormal amounts of HbF. Blood transfusions may impact the HbA1c concentration in the patient sample. Estimated Average Glucose 123 mg/dL [facility] Comment:eAG = Estimated ave rage glucose which is %A1C expressed asaverage glucose, using the formula of the A0N-KyzfauhFrnyagn Glucose study (ADAG), Diabetes Care, Vol.31,#8,2007 Blood Venous blood specimen / Unknown 07/07/2024 11:30 AM EDT 07/07/2024 12:58 PM EDT us Leora Peña DO LAB BLOOD ORDERABLES Final R esult [facility] [address] [place] [phone] [phone] from Last 3 Months or Most Recently Relevant to Health Maintenance Insurance [facility] C3 DENTAL-[facility] MEDICAID STAND ADULT Care Teams Tool Hardener Relationship Specialty Start Date End Date Leora Peña DO [address] [place] [address] PCP - General Family Medicine 07/07/24
== END 2024-10-20 11:49 | disposition home or self-care (01) ==
LOC: HO.HOS 10:54
DX: M65.332 Trigger finger, left middle finger (principal)
CPT/HCPCS: 20550; 99203

== ENCOUNTER → 2024-10-20 10:53 | Outpatient (BNVA) | payer MEDICAID, SELFPAY | DX: M65.332 Trigger finger, left middle finger (principal); R20.0 Anesthesia of skin; R20.2 Paresthesia of skin | CPT/HCPCS: 20550; 99212; J1100; J2003 ==

== ENCOUNTER 2025-01-20 11:00 | Outpatient (AMB) | payer MEDICAID, SELFPAY ==
[2025-01-20 11:02] VITALS: BMI 43.1
--- NOTE | 2025-01-20 11:02 | A.OFFVIS_ITS ---
Vital Signs 01/20/25 11:02 Height 5 ft 1 in Weight 228 lb BMI 43.1 Intake Visit Reasons: OV: Left Middle Trigger Finger, Inj 10/20/24 Intake Note: Delfin is a 43 year old right hand dominant female who presents today for Follow Up of her Left Middle Trigger Finger status post injection, DOS: 10/20/24. Patient reports the injection helped her a lot . She has been able to work without any problems. Patient states she is still having ocasional numbness but does not with seek any surgical intervention at this time. Associate Marketing Manager Required: Yes Associate Marketing Manager Language: Gabino Patterson Associate Marketing Manager Name: [id number] Allergies naproxen Adverse Reaction (Intermediate, Verified 01/20/25 11:09) Abdominal Pain HPI HPI OV: Left Middle Trigger Finger, Inj 10/20/24: Details: Delfin is a 43 year old right hand dominant female who presents today for Follow Up of her Left Middle Trigger Finger status post injection, DOS: 10/20/24. Patient reports the injection helped her a lot . Denies any further locking and catching of the left middle finger. She has been able to work without any problems. Patient states she is still having occasional numbness that occurs approximately once to twice a week but patient states she would like to hold off on any operative intervention at this time. Patient states that if symptoms become more bothersome, she would be open to surgery, but she does not feel that her current symptomatic load justifies any operative intervention. Physical Exam Vital Signs: BMI result Body Mass Index 43.1 Extrem Other: Neuro: Normal sensation of the tips of all digits of both hands in the office today No thenar or intrinsic wasting. Good APB muscle firing and good finger cross. Vascular: Capillary refill brisk. ROM: There is no further visible and palpable locking and catching of the left middle finger in the office today Patient can make a fist and extend all their digits. Skin: No lacerations or abrasions noted. General: No ecchymosis. No erythema or evidence of infection. Assessment & Plan Assessment & Plan (1) Trigger finger, left middle finger: Code(s): M65.332 - Trigger finger, left middle finger Category: Medical (2) Left carpal tunnel syndrome: Code(s): G56.02 - Carpal tunnel syndrome, left upper limb Category: Medical Plan 1. Trigger finger, left middle finger Status post injection on 10/20/2024 with complete symptomatic resolution No further acute intervention indicated Patient may follow-up with me if locking and catching returns 2. Left carpal tunnel syndrome Symptoms intermittent, not daily, worse at night Patient is educated about this condition Patient is educated about the typical treatment course Patient is educated at this time that without surgical intervention, carpal tunnel symptoms are likely to continue to worsen Patient is educated that when symptoms are intermittent, but almost daily or daily, should call us for reassessment and discussion of surgical intervention Patient understands this and is amenable to this plan Follow-up prn Coding Level of Care Code Est Pt Level 3 (42307) Diagnoses Trigger finger, left middle finger M65.332 Left carpal tunnel syndrome G56.02
--- OUTSIDE RECORDS SUMMARY | 2025-01-20 11:52 | XMS_ITS | Clinical Summary ---
Author Organization [facility] [employer] Address [address] [place] [address] Care Team Providers Care Digital Marketing Associate Name Role Phone MarianaLeora Primary Care Provider [phone] Allergies No known active allergies Medications * [...] bedtime (pain). 150 g 3 5 Active cholecalciferol (Vitamin D-3) 50 MCG (1999 UT) capsule Take 1 capsule (50 mcg) by mouth Once per day. 90 capsule 3 5 07/09/19 26 Active acetaminophen (Tylenol 8 Hour) 650 MG ER tabletIndicatio ns:Severe dental caries,Bony exostosis Take 1 tablet (650 mg) by mouth every 8 (eight) hours if needed for mild pain. Do not crush, chew, or split. 30 tablet 5 Active Active Problems Problem Noted Date Diagnosed Date Severe dental caries 10/24/2024 Bony exostosis 10/24/2024 Anxiety 07/07/2024 Mild depression 07/07/2024 Resolved Problems Problem Noted Date Diagnosed Date Resolved Date History of COVID-19 07/07/2024 07/08/19 25 Encounters Date Type Department Care Team Description 10/24/2024 8:00 AM EDT Office Visit [facility] [address] [place] [address] Sancho Anderson DDS Severe dental caries (Primary Dx); Bony exostosis from Last 3 Months Immunizations Immunization Administration Dates Next Due Moderna Covid-19 Vaccine 12+ 02/28/2021,01/12/20 21 Pfizer Covid-19 Vaccine + 04/12/2024 Family History Medical History Relation Name Comments Tuberculosis Father Relation Name Status Comments Father Social History Tobacco Use Types Packs/Day Years Used Date Smoking Tobacco: Never Tobacco Cessation:Counseling Given: Not Answered Alcohol Use Standard Drinks/Week Comments Defer 0 (1 standard drink = 0.6 oz pur e alcohol) Depression Answer Date Recorded Patient Health Questionnaire-9 [...] Sign Reading Time Taken Comments Blood Pressure 118/74 10/24/2024 8:05 AM EDT Pulse 70 10/24/2024 8:05 AM EDT Temperature 36.3 C (97.4 F) [...] Care Team (Late st Contact Info) Description 02/03/2025 2:30 PM EST Office Visit [facility] [address] [place] [address] Jack Pappas MD [address] [place] [address] Health Maintenance Due Date Last Done Comments [...] Cancer Screening 2010 HPV/Cotest 2010 Mammogram 2020 COVID-19 Vaccine (4 - 2024-2 6 season) 2024 04/12/2024, 02/28/2021, 01/11/2021 Influenza Vaccine (#1) 2024 Depression Screening 07/07/2025 07/07/2024, 07/07/2024 Diabetes: Hemoglobin A1C 07/07/2025 07/07/2024 Tobacco Screening 10/24/2025 10/24/2024 Zoster Vaccines (1 of 2) 2030 RSV Patients and Patients Aged 60 years or older (1 - 1-dose 75+ series) 12/14/2055 HIV Screening Completed 07/07/2024 Hepatitis C Screening [...] Procedure Name Priority Date/Time Associated Diagnosis Comments 14 EXTRACTION, ERUPTED TOOTH REQ REMOVAL OF BONE AND/OR SECTIONING OF TOOTH Routine 10/24/2024 8:00 AM EDT CASE PRESENTATION, DETAILED AND EXTENSIVE TREATMENT PLANNING Routine 10/24/2024 8:00 AM EDT HEPATITIS C AB W/REFL TO HCV RNA, [...] Recently Relevant to Health Maintenance Results * Hepatitis C Antibody with Reflex to HCV, RNA, Quantitative, Real-Time PCR (07/07/2024 11:30 AM EDT) Hepatitis C Antibody Nonreactive Nonreactive [facility] Comment:Antibodies to HCV no t detected; does not exclude early acuteHCV infection. Blood Venous blood specimen / Unknown 07/07/2024 11:30 AM EDT 07/07/2024 12:58 PM EDT us Leora Peña DO LAB BLOOD ORDERABLES Final R esult [facility] [address] [place] [phone] * HIV-1/2 Antigen and Antibodies, Fourth Generation, with Reflexes (07/07/2024 11:30 AM EDT) HIV AB/AG Nonreactive Nonreactive [facility] Comment:HIV-1 p24 Ag and/or HIV-1/HIV-2 Ab not detected.A test result that is nonreactive does not exclude thepossibility of exposure to or infection with HIV-1 and/orHIV-2. Nonreactive results in this assay for individualswith prior exposure to HIV-1 and/or HIV-2 may be due toantigen and antibody levels that are below the limit ofdetection of this assay.The [employer] HIV Ag/Ab Combo assay result andsupplemental assay results should be interpreted inconjunction with the patient's clinical presentation,history and other laboratory results. If the results areinconsistent with clinical evidence, additional testing issuggested to confirm the result. Blood Venous blood specimen / Unknown 07/07/2024 11:30 AM EDT 07/07/2024 12:58 PM EDT Leora Peña DO LAB BLOOD ORDERABLES Final R esult [facility] [address] [place] [phone] * Hemoglobin A1c (07/07/2024 11:30 AM EDT) Hemoglobin A1c 5.9 <6.0 % [facility] Comment:Hemoglobin A1C Refer ence Range Adults: 4.8 - 6.0 % Non diabetic: < 6.0 % Goal: < 7.0 %Additional Action Suggested: > 8.0 %Note: Hemoglobin A1c results are invalid for patients with abnormal amounts of HbF. Blood transfusions may impact the HbA1c concentration in the patient sample. Estimated Average Glucose 123 mg/dL [facility] Comment:eAG = Estimated ave rage glucose which is %A1C expressed asaverage glucose, using the formula of the C7S-QsqrlwaQxoadym Glucose study (ADAG), Diabetes Care, Vol.31,#8,Sep. 2007 Blood Venous blood specimen / Unknown 07/07/2024 11:30 AM EDT 07/07/2024 12:58 PM EDT us Leora Peña DO LAB BLOOD ORDERABLES Final R esult [facility] [address] [place] [phone] [phone] from Last 3 Months or Most Recently Relevant to Health Maintenance Insurance [facility] C3 DENTAL-[facility] MEDICAID STAND ADULT Care Teams Digital Marketing Associate Relationship Specialty Start Date End Date Leora Peña DO [address] [place] [address] PCP - General Family Medicine 07/07/24
== END 2025-01-20 11:26 | disposition home or self-care (01) ==
DX: M65.332 Trigger finger, left middle finger (principal); G56.02 Carpal tunnel syndrome, left upper limb
CPT/HCPCS: 99213

== ENCOUNTER → 2025-01-20 11:00 | Outpatient (BNVA) | payer MEDICAID, SELFPAY | DX: M65.332 Trigger finger, left middle finger (principal); G56.02 Carpal tunnel syndrome, left upper limb | CPT/HCPCS: 99212 ==